=== PATIENT | female | born 1945 | race Caucasian/White ===

== ENCOUNTER 2024-11-17 11:51 | Observation (INO) ==
[2024-11-17 12:10] VITALS: BMI 42.0
[2024-11-17 14:37] LABS: MEAN PLATELET VOLUME 10.0 fL (7.4-11.0); RED CELL DISTRIBUTION WIDTH 14.3 % (11.6-16.5)
--- NOTE | 2024-11-17 14:45 | DR.SOBA ---
HPI Time Seen Time Seen by Provider: 11/17/24 13:56 Primary Care Physician Primary Care Physician: Nany Joseph NP HPI Comment HPI Comment: Dr. Carrington called regarding this patient earlier today stating that she had been diagnosed with pneumonia and was started on antibiotics but was seen in the office today and tested positive for COVID as well. Given patient was having some shortness of breath he would like to have her admitted after some workup. Complaints Chief Complaint:: Patient reports that she has shortness of breath, cough, and diarrhea. Self Treatment fo Chief Complaint: went to [facility] last sunday and was told that she has PNA and was given ABX. saw PCP today and tested positive for COVID and PCP wanted her to go to ER for further evaluation of Pneumonia. COVID-19 Coronavirus risk:travel/contact w/high risk person: No Has patient experienced Coronavirus symptoms: No Source History Provided: Patient Mode of Arrival Mode of Arrival: Ambulatory Timing Onset of Chief Complaint: 11/10/24 PMH PMH Past Medical History: Yes Past Medical History: Arthritis, Diabetes, Dyslipidemia, GERD, Hypertension and Renal Disease Past Medical History Comment: RLS Past Surgical History: Yes Surgical History: Cholecystectomy Past Surgical History Comment: parathyroid removed Family History History of Family Medical Conditions: Yes Family Medical History: Diabetes Mellitus, Cancer, [place], Coronary Artery Disease, Heart Failure and Hypertension Social History Type of Tobacco Use: None Alcohol Use: None Do you use any recreational Drugs:: No Lives With: Alone Lives Where: Home Travel Risk Coronavirus risk:travel/contact w/high risk person: No Has patient experienced Coronavirus symptoms: No Infectious screening Have you traveled outside the country in the last 6 months?: No Isolation: Standard ROS Review of Systems Constitutional: See HPI and Fever Eyes: No Symptoms Reported ENTM: No Symptoms Reported Respiratoy: See HPI, Non-Productive Cough and Short of Breath; negative Wheezing Cardiovascular: No Symptoms Reported; negative Chest Pain, Edema, Palpitations or Syncope Gastrointestinal/Abdominal: No Symptoms Reported Genitourinary: No Symptoms Reported Neurological: No Symptoms Reported Musculoskeletal: No Symptoms Reported Integumentary: No Symptoms Reported Hematologic/Lymphatic: No Symptoms Reported Endocrine: No Symptoms Reported Psychiatric: No Symptoms Reported All Other Systems: Reviewed and Negative PE Vital Signs Vitals: Vital Signs Temperature 99.2 F Pulse Rate 95 Respiratory Rate 24 Blood Pressure 109/61 O2 Sat by Pulse Oximetry 96 General Limitations: No Limitations General Appearance: Alert and In No Apparent Distress Head Head Exam: Normal Inspection Eyes Eye exam: Normal Appearance ENT ENT Exam: Normal Exam Neck Neck Exam: Normal Inspection Chest Chest Inspection: Normal Inspection Respiratory Respiratory Exam: Other (Slightly diminished bilaterally in the lower bases); negative Respiratory Distress Cardiovascular Cardiovascular Exam: Regular Rate and Normal Rhythm Abdominal Exam Abdominal Exam: Normal Inspection, Normal Bowel Sounds and Soft Extremities Extremities Exam: Normal Inspection Back Back Exam: Normal Inspection Neurologic Neurological Exam: Alert and Oriented X3 Psychiatric Psychiatric Exam: Normal Affect and Normal Mood Skin Skin Exam: Warm, Dry, Intact and Normal Color COURSE Treatment Treatment: Discussed results of workup with patient. Patient with pneumonia and tested positive for COVID at PCPs office today. Consultation Consultation Comments: Discussed case with Dr. Carrington, her PCP, and he is agreeable to admission. [facility] Labs Reviewed 11/17/24 14:09 11/17/24 14:09 Laboratory: WBC 10.6 X10^3/uL (3.6-10.0) H 11/17/24 14:09 RBC 4.99 X10^6/uL (3.5-5.4) 11/17/24 14:09 Hgb 13.3 g/dL (12.0-16.0) 11/17/24 14:09 Hct 41.2 % (36.0-47.0) 11/17/24 14:09 MCV 82.6 fL (80.0-100.0) 11/17/24 14:09 MCH 26.7 pg (27.0-34.0) L 11/17/24 14:09 MCHC 32.3 g/dL (33.0-35.0) L 11/17/24 14:09 RDW 14.3 % (11.6-16.5) 11/17/24 14:09 Plt Count 349 X10^3/uL (150.0-450.0) 11/17/24 14:09 MPV 10.0 fL (7.4-11.0) 11/17/24 14:09 Neut % (Auto) 80.5 % (42.0-75.0) H 11/17/24 14:09 Lymph % (Auto) 6.9 % (21.0-51.0) L 11/17/24 14:09 [place] % (Auto) 9.6 % (0.0-13.0) 11/17/24 14:09 Eos % (Auto) 0.2 % (0.9-2.9) L 11/17/24 14:09 Baso % (Auto) 2.8 % (0.2-1.0) H 11/17/24 14:09 Neut # (Auto) 8.5 x10^3/uL (2.2-4.8) H 11/17/24 14:09 Lymph # (Auto) 0.7 X10^3/uL (1.3-2.9) L 11/17/24 14:09 [place] # (Auto) 1.0 x10^3/uL (0.3-0.8) H 11/17/24 14:09 Eos # (Auto) 0.0 x10^3/uL (0.0-0.2) 11/17/24 14:09 Baso # (Auto) 0.3 X10^3/uL (0.0-0.1) H 11/17/24 14:09 Absolute Nucleated RBC 0.0 /100WBC 11/17/24 14:09 Sodium 140 mmol/L (136-145) 11/17/24 14:09 Corrected Sodium TNP 11/17/24 14:09 Potassium 3.6 mmol/L (3.5-5.1) 11/17/24 14:09 Chloride 103 mmol/L (98-107) 11/17/24 14:09 Carbon Dioxide 29.0 mmol/L (21-32) 11/17/24 14:09 BUN 20 mg/dL (7-18) H 11/17/24 14:09 Creatinine 1.35 mg/dL (0.55-1.02) H 11/17/24 14:09 Est GFR (MDRD) Af Amer 49 (>60) L 11/17/24 14:09 Est GFR (MDRD) Non-Af 40 (>60) L 11/17/24 14:09 Glucose 101 mg/dL (65-99) H 11/17/24 14:09 Lactic Acid 1.3 mmol/L (0.4-2.0) 11/17/24 14:09 Calcium 9.4 mg/dL (8.5-10.1) 11/17/24 14:09 Corrected Calcium 10.2 mg/dL (8.5-10.1) H 11/17/24 14:09 Magnesium 2.1 mg/dL (2.0-2.9) 11/17/24 14:09 Total Bilirubin 0.30 mg/dL (0.2-1.0) 11/17/24 14:09 AST 21 Units/L (15-37) 11/17/24 14:09 ALT 22 Units/L (12-78) 11/17/24 14:09 Alkaline Phosphatase 125 Units/L (46-116) H 11/17/24 14:09 Creatine Kinase 44 Units/L (26-192) 11/17/24 14:09 Troponin I High Sens 13.4 ng/L (4.0-60.0) 11/17/24 14:09 B-Natriuretic Peptide 353 pg/mL (0-79) H 11/17/24 14:09 Total Protein 8.6 g/dL (6.4-8.2) H 11/17/24 14:09 Albumin 3.0 g/dL (3.4-5.0) L 11/17/24 14:09 Globulin 5.6 g/dL (2.5-4.5) H 11/17/24 14:09 Albumin/Globulin Ratio 0.5 Ratio (1.1-2.1) L 11/17/24 14:09 Opioid Opioid Risk Tool Age (David box if 16-45): No History of Preadolescent Sexual Abuse: No Total: 0 Total Score Risk Category: Low Risk Copyright: Arnoldo CASTELLANOS predicting aberrant behaviors Discharge Plan Diagnosis Discharge Problem: Pneumonia, COVID, Hypoxia Discharge Plan Patient Disposition: 09 ADMITTED INPATIENT Condition: Stable Prescriptions: No Action atorvastatin 10 mg tablet 10 mg PO QDAY tramadol 50 mg tablet 50 mg PO TID PRN levothyroxine 25 mcg tablet 25 mcg PO QDAY citalopram 20 mg tablet 20 mg PO QDAY amlodipine 10 mg tablet 10 mg PO QDAY gabapentin 300 mg capsule PO omeprazole 20 mg capsule,delayed release(DR/EC) 20 mg PO QDAY montelukast 10 mg tablet 10 mg PO QDAY furosemide 20 mg tablet 20 mg PO QDAY amoxicillin-pot clavulanate 875-125 mg tablet 1 tab PO BID memantine 10 mg tablet 10 mg PO QDAY Health Concerns: Post Hospitalization: new medications and changes needed to prevent readmission or further decline. Pt educated and given instructions on all concerns. Plan of Treatment: Continue with present treatment and follow up plan. Pt is to keep follow up appointment as instructed and take medications as ordered. Orders to Discharge Patient Discharge Orders: Transfer (Routine); Ordered 11/17/24 Ordered By: Robin Shah Follow ups/Referrals Follow ups/Referrals: NANY JOSEPH [Primary Care Provider, Unknown] - 3 days Instructions Stand Alone Forms: Find Help Web Site, Post Hospital Follow Up Care Print Language: GREEK
--- NOTE | 2024-11-17 14:48 | EKG ---
Test Reason : sob Blood Pressure : */* mmHG Vent. Rate : 110 BPM Atrial Rate : * BPM P-R Int : * ms QRS Dur : 98 ms QT Int : 290 ms P-R-T Axes : * 28 16 degrees QTc Int : 392 ms Atrial fibrillation with rapid ventricular response Incomplete right bundle branch block Cannot rule out Anterior infarct , age undetermined Abnormal ECG No previous ECGs available Confirmed by Jorge Ferrara MD ([id number]) on 11/18/2024 11:53:58 AM Referred By: Confirmed By: Jorge Ferrara MD
[2024-11-17 15:07] LABS: COR CA(FOR HYPOALB) 10.2 mg/dL (8.5-10.1); CREATININE 1.35 mg/dL (0.55-1.02); eGFR NON BLACK RACES 40 (>60)
--- NOTE | 2024-11-17 15:52 | CT ---
EXAMINATION: CTA, CHEST HISTORY: Patient reports that she has shortness of breath, cough, and diarrhea. pt states she is covid positive ; COMPARISON: None. TECHNIQUE: Contiguous axial CT images of the thorax following intravenous contrast. Images reviewed in the axial imaging plane with post processing thick slab MIP/3D volume images at a workstation.The above CT scan was done with automated exposure control and the mA and kV was adjusted to obtain quality images according to patient size. FINDINGS: The lungs are expanded. Mild bilateral pleural effusions in the dependent posterior pleural spaces. Patchy interstitial alveolar infiltrates posteroinferior lower lobes. 1.9 x 2.9 x 1.7 cm focal region of pulmonary consolidation in the right middle lobe. The central airways are patent. Mild cardiomegaly, coronary artery calcifications. Slight pericardial thickening/pleural fluid. Enlarged main pulmonary outflow trunk measuring 4 cm diameter consistent with pulmonary arterial hypertension. There is reflux of contrast into the IVC consistent with right-sided cardiac dysfunction. No evidence of thrombus within the pulmonary arteries. No evidence of thoracic aortic aneurysm or dissection. No mediastinal or hilar adenopathy. Spondylosis. IMPRESSION: Mild bilateral pleural effusions in the dependent posterior pleural spaces. Patchy interstitial alveolar infiltrates in both lower lobes. Focal region of pulmonary consolidation right middle lobe. Enlarged main pulmonary outflow trunk consistent with pulmonary arterial hypertension. Reflux of contrast into the IVC consistent with right-sided cardiac dysfunction. Mild cardiomegaly, coronary artery calcifications. THIS IS AN ELECTRONICALLY VERIFIED FINAL REPORT 11/17/2024 3:49 PM - Electronically signed by Brandi Jimenez MD
[2024-11-17] MEDS: LASIX IVP STA (17:28)
[2024-11-17] MEDS ORDERED: NORCO 5/325 MG TAB PO PRN (18:33)
[2024-11-17] MEDS ORDERED: ZOFRAN INJ 4 MG VIAL IVP PRN (18:33)
[2024-11-17] MEDS ORDERED: TYLENOL 325 MG TAB PO PRN (18:33)
[2024-11-17] MEDS ORDERED: MORPHINE SULFATE INJ 2 MG INJ IVP PRN (18:33)
[2024-11-17] MEDS ORDERED: ULTRAM PO PRN (18:33)
[2024-11-17] MEDS: K-DUR TAB 20 MEQ PO ONE (19:51)
[2024-11-17] MEDS: VIBRAMYCIN PO SCH (19:51)
[2024-11-17] MEDS ORDERED: ROBITUSSIN DM PO PRN (20:47)
[2024-11-17] MEDS: DUONEB 0.5 MG/3 MG (3 mL) NEB SCH (21:25)
[2024-11-17] MEDS: PULMICORT NEB TX 0.5 MG NEB SCH (21:25)
[2024-11-17] MEDS: TUSSIONEX PENNKINETIC SUSP PO PRN (21:43)
[2024-11-17] MEDS: NEURONTIN CAP 300 MG PO SCH (21:43)
[2024-11-18 05:39] LABS: MEAN PLATELET VOLUME 10.0 fL (7.4-11.0); RED CELL DISTRIBUTION WIDTH 14.5 % (11.6-16.5)
[2024-11-18] MEDS: SYNTHROID 25 mcg TAB PO SCH (05:51)
[2024-11-18 06:06] LABS: COR CA(FOR HYPOALB) 9.7 mg/dL (8.5-10.1); CREATININE 1.21 mg/dL (0.55-1.02); eGFR NON BLACK RACES 46 (>60)
[2024-11-18] MEDS: K-DUR TAB 20 MEQ PO ONE (07:29)
[2024-11-18] MEDS: CONSULT PHARMACY - POTASSIUM & MAGNESIUM XX SCH (07:29)
[2024-11-18] MEDS: OMNIPAQUE 350 mg/mL 100 mL BTL 100 ML ONE (07:29)
[2024-11-18] MEDS: PULMICORT NEB TX 0.5 MG NEB ONE (07:30)
[2024-11-18] MEDS: DUONEB 0.5 MG/3 MG (3 mL) NEB ONE (07:30)
[2024-11-18] MEDS ORDERED: CONSULT PHARMACY - POTASSIUM & MAGNESIUM XX SCH (08:00)
--- NOTE | 2024-11-18 08:42 | DR.H&P ---
H&P History & Physical for Day of: H&P Date: 11/18/24 Chief Complaint Chief Complaint: dyspnea History of Present Illness History of Present Illness: Patient admitted to [facility] 11/11- for chest pain. She did undergo a stress test that was benign. During their workup, found right lower lobe pneumonia. She was sent home on Augmentin and follow-up with PCP. They did not do flu or COVID testing. She went to her PCP for hospital follow-up still feeling rough. COVID testing was positive. Pulse and respiratory rate were elevated. She was sent to our facility for ER evaluation and admission. In the ER, CT of the chest showed pulmonary hypertension with reflux from the right atrium into the IVC. Did show the right lower lobe pneumonia along with bilateral pleural effusions. Does have multiple areas of patchy infiltrate. She did meet sepsis criteria but did not require supplemental O2 and her lactic was normal. Serum creatinine was improved compared [facility] and further improved this morning. Patient reports that she went straight to sleep when she got up to the floor. She has slept all night. She has had productive cough throughout the night and feels like the breathing is a little better. Still feels extremely fatigued and weak overall. PMH: HTN, morbid obesity, HLD, CKD 4, prediabetes (last A1c 5.8% in July 2024). PSH: Bilateral TKA. Social: No tobacco, alcohol, or illicit drug use. Works as a realtor. ROS: 12 point ROS significant for productive cough, fatigue, weakness, malaise, fever, chills, sore throat. No nausea, vomiting, diarrhea, abdominal pain, leg swelling, claudication, palpitations, hemoptysis, or vision changes specifically. ROS otherwise negative. PE: Obese, elderly female in no acute distress. She is able to sit up without assistance. She is coughing with talking and deep breathing. Head NCAT, EOMI, hearing intact conversation, neck FAROM. Heart regular rate and rhythm with no murmur. Lungs diminished at bilateral bases with crackles and space of the right lower lobe. Fair air movement throughout with coarse breath sounds otherwise. Belly is soft, protuberant, and nontender with bowel sounds present. Able to move all 4 extremities well and able to ambulate to the bathroom without assistance. Mood and affect are appropriate and she is alert and oriented x 4. No edema of her extremities with 2+ cap refill and 2+ pulses throughout. Past Medical History Past Medical History: Arthritis, Diabetes, Dyslipidemia, GERD, Hypertension and Renal Disease Past Surgical History Surgical History: Joint Replacement and Ortho Surgery Family History Family Medical History: Diabetes Mellitus, Cancer, [place], Coronary Artery Disease, Heart Failure and Hypertension Social History Does patient currently use any type of tobacco product: No Type of Tobacco Use: None Does any household member use tobacco: No Alcohol Use: Rarely Drug Use: None Medications Home Medications: Home Medications Medication Instructions Recorded Confirmed Type amlodipine 10 mg tablet 10 mg PO QDAY 11/17/2411/17 History amoxicillin 875 mg-potassium 1 tab PO BID 11/17/24 History clavulanate 125 mg tablet atorvastatin 10 mg tablet 10 mg PO QDAY 11/17/2411/17 History citalopram 20 mg tablet 20 mg PO QDAY 11/17/2411/17 History furosemide 20 mg tablet 20 mg PO QDAY 11/17/2411/17 History gabapentin 300 mg capsule PO 11/17/24 History levothyroxine 25 mcg tablet 25 mcg PO QDAY 11/17/24 History memantine 10 mg tablet 10 mg PO QDAY 11/17/2411/17 History montelukast 10 mg tablet 10 mg PO QDAY 11/17/2411/17 History omeprazole 20 mg capsule,delayed 20 mg PO QDAY 5 11/17/24 History release tramadol 50 mg tablet 50 mg PO TID PRN 11/17/24 History Allergies Allergies Allergy/AdvReac Type Severity Reaction Status Date / Time No Known Drug Allergies Allergy Unknown Verified 11/17/24 12:10 Labs 11/18/24 04:12 11/18/24 04:12 Labs: Laboratory WBC 8.4 X10^3/uL (3.6-10.0) 11/18/24 04:12 RBC 4.73 X10^6/uL (3.5-5.4) 11/18/24 04:12 Hgb 12.5 g/dL (12.0-16.0) 11/18/24 04:12 Hct 39.0 % (36.0-47.0) 11/18/24 04:12 MCV 82.4 fL (80.0-100.0) 11/18/24 04:12 MCH 26.4 pg (27.0-34.0) L 11/18/24 04:12 MCHC 32.1 g/dL (33.0-35.0) L 11/18/24 04:12 RDW 14.5 % (11.6-16.5) 11/18/24 04:12 Plt Count 293 X10^3/uL (150.0-450.0) 11/18/24 04:12 MPV 10.0 fL (7.4-11.0) 11/18/24 04:12 Neut % (Auto) 66.1 % (42.0-75.0) 11/18/24 04:12 Lymph % (Auto) 16.3 % (21.0-51.0) L 11/18/24 04:12 [place] % (Auto) 15.1 % (0.0-13.0) H 11/18/24 04:12 Eos % (Auto) 0.8 % (0.9-2.9) L 11/18/24 04:12 Baso % (Auto) 1.7 % (0.2-1.0) H 11/18/24 04:12 Neut # (Auto) 5.5 x10^3/uL (2.2-4.8) H 11/18/24 04:12 Lymph # (Auto) 1.4 X10^3/uL (1.3-2.9) 11/18/24 04:12 [place] # (Auto) 1.3 x10^3/uL (0.3-0.8) H 11/18/24 04:12 Eos # (Auto) 0.1 x10^3/uL (0.0-0.2) 11/18/24 04:12 Baso # (Auto) 0.1 X10^3/uL (0.0-0.1) 11/18/24 04:12 Absolute Nucleated RBC 0.8 /100WBC 11/18/24 04:12 Sodium 142 mmol/L (136-145) 11/18/24 04:12 Corrected Sodium TNP 11/18/24 04:12 Potassium 3.2 mmol/L (3.5-5.1) L 11/18/24 04:12 Chloride 105 mmol/L (98-107) 11/18/24 04:12 Carbon Dioxide 25.9 mmol/L (21-32) 11/18/24 04:12 BUN 18 mg/dL (7-18) 11/18/24 04:12 Creatinine 1.21 mg/dL (0.55-1.02) H 11/18/24 04:12 Est GFR (MDRD) Af Amer 55 (>60) L 11/18/24 04:12 Est GFR (MDRD) Non-Af 46 (>60) L 11/18/24 04:12 Glucose 92 mg/dL (65-99) 11/18/24 04:12 Lactic Acid 1.3 mmol/L (0.4-2.0) 11/17/24 14:09 Calcium 8.5 mg/dL (8.5-10.1) 11/18/24 04:12 Corrected Calcium 9.7 mg/dL (8.5-10.1) 11/18/24 04:12 Magnesium 2.1 mg/dL (2.0-2.9) 11/17/24 14:09 Total Bilirubin 0.30 mg/dL (0.2-1.0) 11/18/24 04:12 AST 20 Units/L (15-37) 11/18/24 04:12 ALT 20 Units/L (12-78) 11/18/24 04:12 Alkaline Phosphatase 103 Units/L (46-116) 11/18/24 04:12 Creatine Kinase 44 Units/L (26-192) 11/17/24 14:09 Troponin I High Sens 13.4 ng/L (4.0-60.0) 11/17/24 14:09 B-Natriuretic Peptide 353 pg/mL (0-79) H 11/17/24 14:09 Total Protein 7.3 g/dL (6.4-8.2) 11/18/24 04:12 Albumin 2.5 g/dL (3.4-5.0) L 11/18/24 04:12 Globulin 4.8 g/dL (2.5-4.5) H 11/18/24 04:12 Albumin/Globulin Ratio 0.5 Ratio (1.1-2.1) L 11/18/24 04:12 SARS-CoV-2 (PCR) Positive (NEGATIVE) A 11/17/24 19:46 Influenza Type A (PCR) Negative (NEGATIVE) 11/17/24 19:46 Influenza Type B (PCR) Negative (NEGATIVE) 11/17/24 19:46 RSV (PCR) Negative (NEGATIVE) 11/17/24 19:46 Physical Exam Vital Signs: Vital Signs Temperature 97.8 F Temperature 97.7 F Pulse Rate [Brachial] 91 Pulse Rate [Brachial] 101 Respiratory Rate 16 Respiratory Rate 22 Blood Pressure [Right Arm] 117/58 Blood Pressure [Right Arm] 128/59 O2 Sat by Pulse Oximetry 95 O2 Sat by Pulse Oximetry 93 Assessment/Plan (1) Right lower lobe pneumonia: Qualifiers: Pneumonia type: due to unspecified organism Qualified Code(s): J18.9 - Pneumonia, unspecified organism Narrative Support Text: 05/04 COVID19. DuoNebs, O2 supplementation, doxycycline, steroids, incentive spirometry, out of bed as tolerated. Likely home in the next 24-48 hours. Status: Acute (2) COVID: Status: Acute (3) Bilateral pleural effusion: Narrative Support Text: Lasix IV. Hold Lasix p.o. Likely secondary to pneumonia and COVID-19. Status: Acute (4) Pulmonary hypertension: Narrative Support Text: Consider starting Jardiance at discharge. Treating the pneumonia and COVID-19 along with diuresis for the pleural effusions. Monitor closely. Will need outpatient echo. Status: Acute (5) Acute right-sided heart failure: Narrative Support Text: See above. Status: Acute (6) Hypoxia: Narrative Support Text: See above. Status: Acute (7) Prediabetes: Narrative Support Text: Consider starting Jardiance due to the prediabetes along with new right heart strain/CHF. Will need to have an outpatient echo for follow-up. NST at [facility] last week was benign with a EF of 71%. Status: Chronic (8) Essential (primary) hypertension: Narrative Support Text: Continue home meds. Watch amlodipine closely. Status: Chronic (9) Mixed hyperlipidemia: Narrative Support Text: Continue statin Status: Chronic (10) Morbid obesity: Narrative Support Text: Validus-IVC diet. Consider GLP-1 given coronary calcifications and prediabetes. Status: Chronic
[2024-11-18] MEDS: K-DUR TAB 20 MEQ PO SCH (08:47)
[2024-11-18] MEDS: MAG-OX TAB PO SCH (08:47)
[2024-11-18] MEDS: NORVASC TAB 10 MG PO SCH (08:48)
[2024-11-18] MEDS: SINGULAIR TAB 10 MG PO SCH (08:48)
[2024-11-18] MEDS: LIPITOR TAB 10 MG PO SCH (08:48)
[2024-11-18] MEDS: CELEXA PO SCH (08:48)
[2024-11-18] MEDS: NAMENDA TAB 10 MG PO SCH (08:48)
[2024-11-18] MEDS: LASIX IVP SCH (08:49)
[2024-11-18] MEDS: DECADRON INJ IVP SCH (08:57)
[2024-11-18] MEDS ORDERED: PHARMACY CONSULT XX SCH (09:00)
[2024-11-18] MEDS ORDERED: LASIX PO SCH (09:00)
[2024-11-18] MEDS: MUCINEX EXPECTORANT PO SCH (09:20)
[2024-11-18] MEDS: LOVENOX INJ 40 MG SYR SC SCH (12:27)
[2024-11-18] MEDS: PEPCID TAB 20 MG PO PRN (17:13)
--- NOTE | 2024-11-18 18:14 | EKG ---
Test Reason : tachycardia Blood Pressure : */* mmHG Vent. Rate : 106 BPM Atrial Rate : * BPM P-R Int : * ms QRS Dur : 88 ms QT Int : 312 ms P-R-T Axes : * -6 50 degrees QTc Int : 414 ms Atrial fibrillation with rapid ventricular response Nonspecific ST and T wave abnormality Abnormal ECG When compared with ECG of 17-NOV-2024 14:46, No significant change was found Confirmed by Jorge Ferrara MD ([id number]) on 11/19/2024 6:39:40 AM Referred By: Confirmed By: Jorge Ferrara MD
[2024-11-18] MEDS: ELIQUIS PO SCH (19:06)
[2024-11-18] MEDS: CARDIZEM TAB 30 MG PLAIN PO SCH (21:09)
[2024-11-18] MEDS: AMBIEN PO PRN (21:09)
[2024-11-19 05:36] LABS: MEAN PLATELET VOLUME 10.1 fL (7.4-11.0); RED CELL DISTRIBUTION WIDTH 14.4 % (11.6-16.5)
[2024-11-19 06:03] LABS: COR CA(FOR HYPOALB) 9.9 mg/dL (8.5-10.1); COR NA(FOR HYPERGLY) 142.0 mmol/L (136-145); CREATININE 1.36 mg/dL (0.55-1.02); eGFR NON BLACK RACES 40.0 (>60)
[2024-11-19] MEDS: LOPRESSOR TAB 25 MG PO SCH (13:02)
--- NOTE | 2024-11-19 13:31 | DR.CONSULT ---
CONSULT Consultation for Day of: Date: 11/19/24 Chief Complaint Chief Complaint: afib Allergies Allergies Allergy/AdvReac Type Severity Reaction Status Date / Time No Known Drug Allergies Allergy Unknown Verified 11/17/24 12:10 History of Present Illness History of Present Illness: 79 yo female- asked to see for afib- last week 11/11 admitted for cp- mi ruled out- ekg: normal sinus/normal- stress nuc: no ischemia EF 71%.dxed with PNA- readmitted here for pna/covid- found to be in afib- started on doac /and cardizem( takes amlodipine chronic)= no heart issues in past- ? bord dm/no statin has htn- never smoked- ekg: afib- tele shows occ p wave so trying to convert Past Medical History Past Medical History: Arthritis, Diabetes, Dyslipidemia, GERD, Hypertension and Renal Disease Past Surgical History Surgical History: Joint Replacement and Ortho Surgery Family History Family Medical History: Diabetes Mellitus, Cancer, [place], Coronary Artery Disease, Heart Failure and Hypertension Social History Does patient currently use any type of tobacco product: No Type of Tobacco Use: None Does any household member use tobacco: No Alcohol Use: Rarely Drug Use: None Medications Home Medications: No Known Drug Allergies Allergy (Unknown, Verified 11/17/24 12:10) CONTINUE taking the following medications amlodipine 10 mg tablet 10 mg PO QDAY 11/17/24 [History] amoxicillin 875 mg-potassium clavulanate 125 mg tablet 1 tab PO BID 11/17/24 [History] atorvastatin 10 mg tablet 10 mg PO QDAY 11/17/24 [History] citalopram 20 mg tablet 20 mg PO QDAY 11/17/24 [History] furosemide 20 mg tablet 20 mg PO QDAY 11/17/24 [History] gabapentin 300 mg capsule 300 mg PO BID 11/17/24 [History] levothyroxine 25 mcg tablet 25 mcg PO QDAY 11/17/24 [History] memantine 10 mg tablet 10 mg PO QDAY 11/17/24 [History] montelukast 10 mg tablet 10 mg PO QDAY 11/17/24 [History] omeprazole 20 mg capsule,delayed release 20 mg PO QDAY 11/17/24 [History] tramadol 50 mg tablet 50 mg PO TID PRN 11/17/24 [History] Physical Exam Vital Signs: Vital Signs Temperature 97.9 F Temperature 98.1 F Pulse Rate 90 Pulse Rate 81 Pulse Rate 85 Respiratory Rate 26 Respiratory Rate 25 Blood Pressure 112/62 Blood Pressure 114/61 O2 Sat by Pulse Oximetry 95 O2 Sat by Pulse Oximetry 95 O2 Sat by Pulse Oximetry 98 alert ox3 nad clear irreg minimal edema labs: wbc 9k hct 37 cr 1.36 k 4.2 tsh 0.5 Plan (1) Right lower lobe pneumonia: Status: Acute Qualifiers: Pneumonia type: due to unspecified organism Qualified Code(s): J18.9 - Pneumonia, unspecified organism (2) COVID: Status: Acute (3) Bilateral pleural effusion: Status: Acute (4) Acute right-sided heart failure: Status: Acute (5) Hypoxia: Status: Acute (6) Prediabetes: Status: Chronic (7) Essential (primary) hypertension: Status: Chronic (8) Mixed hyperlipidemia: Status: Chronic (9) Atrial fibrillation: Status: Acute Plan: agree with doac- change ccb to bb- get echo- was in nsr last week- suspect she will revert back to sinus- she trying now
--- NOTE | 2024-11-19 16:08 | NOTE.SOAP ---
Soap Note Note for Day of Date of Exam: 11/19/24 Subjective Data Subjective Data: Patient went into atrial flutter with RVR last night. Diltiazem and Eliquis started. Cardiology consulted today and echo performed. Report still pending. She is having more of a productive cough. Dyspnea appears improved. Ambulating about room easier. Diltiazem was stopped and metoprolol started by cardiology. Blood pressure doing well. Labs improved other than creatinine. Lasix was switched to IV yesterday. Objective Data Objective Data: Elderly, obese female in no acute distress. space in right lower lobe with improved aeration overall. Heart regular rate and rhythm at this time. 2+ pulses throughout. No swelling of her extremities or face. Belly is soft and nontender with bowel sounds present. Assessment Assessment: 1. Atrial fibrillation with RVR, acute, resolved. Appreciate cardiology input. Echo report pending. Will need to discharge on Eliquis and metoprolol. 2. COVID19 with RLL PNA, acute. Continue current. Will plan on discharge home tomorrow. She is not needing any O2. 3. Idiopathic pulmonary hypertension with right heart strain, acute. Likely secondary to respiratory issues. Likely the source of her atrial fibrillation. Will need pulmonary rehab and outpatient cardiology follow-ups.
[2024-11-20 05:09] LABS: MEAN PLATELET VOLUME 10.4 fL (7.4-11.0); RED CELL DISTRIBUTION WIDTH 13.8 % (11.6-16.5)
[2024-11-20 05:29] VITALS: TEMP 97.6
[2024-11-20 05:48] LABS: COR CA(FOR HYPOALB) 10.0 mg/dL (8.5-10.1); COR NA(FOR HYPERGLY) 140.0 mmol/L (136-145); CREATININE 1.38 mg/dL (0.55-1.02); eGFR NON BLACK RACES 39.0 (>60)
[2024-11-20 07:39] VITALS: BP 138/82; RESP 30
[2024-11-20 08:40] VITALS: PULSE 116; O2SAT 94
[2024-11-20] MEDS: LOPRESSOR TAB 25 MG PO SCH (08:42)
[2024-11-20] MEDS: DECADRON TAB PO ONE (09:42)
[2024-11-20] MEDS: LASIX PO SCH (09:42)
[2024-11-20] MEDS ORDERED: DECADRON TAB PO SCH (10:00)
--- NOTE | 2024-11-20 17:20 | PCM.DCPLAN ---
DISCHARGE SUMMARY Admission Date Date of Admission: 11/17/24 Discharge Date Discharge Date: 11/20/24 Admission Diagnoses (1) Right lower lobe pneumonia: Status: Acute (2) COVID: Status: Acute (3) Bilateral pleural effusion: Status: Acute (4) Acute right-sided heart failure: Status: Acute (5) Hypoxia: Status: Acute (6) Prediabetes: Status: Chronic (7) Essential (primary) hypertension: Status: Chronic (8) Mixed hyperlipidemia: Status: Chronic (9) Atrial fibrillation: Status: Acute Discharge Medications Discharge Medications: Home Medication List amlodipine 10 mg tablet 10 mg PO QDAY 11/17/24 [History] amoxicillin 875 mg-potassium clavulanate 125 mg tablet 1 tab PO BID 11/17/24 [History] atorvastatin 10 mg tablet 10 mg PO QDAY 11/17/24 [History] citalopram 20 mg tablet 20 mg PO QDAY 11/17/24 [History] furosemide 20 mg tablet 20 mg PO QDAY 11/17/24 [History] gabapentin 300 mg capsule 300 mg PO BID 11/17/24 [History] levothyroxine 25 mcg tablet 25 mcg PO QDAY 11/17/24 [History] memantine 10 mg tablet 10 mg PO QDAY 11/17/24 [History] montelukast 10 mg tablet 10 mg PO QDAY 11/17/24 [History] omeprazole 20 mg capsule,delayed release 20 mg PO QDAY 11/17/24 [History] tramadol 50 mg tablet 50 mg PO TID PRN 11/17/24 [History] Prescriptions: Hospital Course Vital Signs: Vital Signs Temperature 97.6 F Temperature 98.0 F Pulse Rate 89 Pulse Rate 103 Respiratory Rate 22 Respiratory Rate 19 Blood Pressure 214/65 Blood Pressure 121/62 O2 Sat by Pulse Oximetry 96 O2 Sat by Pulse Oximetry 96 Latest Lab Results: Laboratory Last Values WBC 13.6 X10^3/uL (3.6-10.0) H 11/20/24 03:56 RBC 4.39 X10^6/uL (3.5-5.4) 11/20/24 03:56 Hgb 11.7 g/dL (12.0-16.0) L 11/20/24 03:56 Hct 36.1 % (36.0-47.0) 11/20/24 03:56 MCV 82.2 fL (80.0-100.0) 11/20/24 03:56 MCH 26.6 pg (27.0-34.0) L 11/20/24 03:56 MCHC 32.3 g/dL (33.0-35.0) L 11/20/24 03:56 RDW 13.8 % (11.6-16.5) 11/20/24 03:56 Plt Count 366 X10^3/uL (150.0-450.0) 11/20/24 03:56 MPV 10.4 fL (7.4-11.0) 11/20/24 03:56 Neut % (Auto) 84.7 % (42.0-75.0) H 11/20/24 03:56 Lymph % (Auto) 8.7 % (21.0-51.0) L 11/20/24 03:56 [place] % (Auto) 6.1 % (0.0-13.0) 11/20/24 03:56 Eos % (Auto) 0.0 % (0.9-2.9) L 11/20/24 03:56 Baso % (Auto) 0.5 % (0.2-1.0) 11/20/24 03:56 Neut # (Auto) 11.5 x10^3/uL (2.2-4.8) H 11/20/24 03:56 Lymph # (Auto) 1.2 X10^3/uL (1.3-2.9) L 11/20/24 03:56 [place] # (Auto) 0.8 x10^3/uL (0.3-0.8) 11/20/24 03:56 Eos # (Auto) 0.0 x10^3/uL (0.0-0.2) 11/20/24 03:56 Baso # (Auto) 0.1 X10^3/uL (0.0-0.1) 11/20/24 03:56 Absolute Nucleated RBC 0.1 /100WBC 11/20/24 03:56 Sodium 140 mmol/L (136-145) 11/20/24 03:56 Corrected Sodium 140 mmol/L (136-145) 11/20/24 03:56 Potassium 3.9 mmol/L (3.5-5.1) 11/20/24 03:56 Chloride 103 mmol/L (98-107) 11/20/24 03:56 Carbon Dioxide 27.3 mmol/L (21-32) 11/20/24 03:56 BUN 33 mg/dL (7-18) H 11/20/24 03:56 Creatinine 1.38 mg/dL (0.55-1.02) H 11/20/24 03:56 Est GFR (MDRD) Af Amer 48 (>60) L 11/20/24 03:56 Est GFR (MDRD) Non-Af 39 (>60) L 11/20/24 03:56 Glucose 115 mg/dL (65-99) H 11/20/24 03:56 Lactic Acid 1.3 mmol/L (0.4-2.0) 11/17/24 14:09 Calcium 9.0 mg/dL (8.5-10.1) 11/20/24 03:56 Corrected Calcium 10.0 mg/dL (8.5-10.1) 11/20/24 03:56 Magnesium 2.2 mg/dL (2.0-2.9) 11/19/24 04:08 Total Bilirubin 0.20 mg/dL (0.2-1.0) 11/20/24 03:56 AST 13 Units/L (15-37) L 11/20/24 03:56 ALT 20 Units/L (12-78) 11/20/24 03:56 Alkaline Phosphatase 102 Units/L (46-116) 11/20/24 03:56 Creatine Kinase 44 Units/L (26-192) 11/17/24 14:09 Troponin I High Sens 13.4 ng/L (4.0-60.0) 11/17/24 14:09 B-Natriuretic Peptide 353 pg/mL (0-79) H 11/17/24 14:09 Total Protein 7.3 g/dL (6.4-8.2) 11/20/24 03:56 Albumin 2.7 g/dL (3.4-5.0) L 11/20/24 03:56 Globulin 4.6 g/dL (2.5-4.5) H 11/20/24 03:56 Albumin/Globulin Ratio 0.6 Ratio (1.1-2.1) L 11/20/24 03:56 TSH 3rd Generation 0.529 uIU/mL (0.358-3.74) 11/19/24 10:11 SARS-CoV-2 (PCR) Positive (NEGATIVE) A 11/17/24 19:46 Influenza Type A (PCR) Negative (NEGATIVE) 11/17/24 19:46 Influenza Type B (PCR) Negative (NEGATIVE) 11/17/24 19:46 RSV (PCR) Negative (NEGATIVE) 11/17/24 19:46 Resp Viral Panel (PCR) See scanned report 11/17/24 17:19 Hospital Course: Patient sent from PCPs office to the ER where she was admitted due to worsening dyspnea and fatigue. Admitted the week prior due to pneumonia. COVID was positive in the PCPs office. ER workup before admission showed pulmonary hypertension, regurgitation into the IVC, mild hypoxia, and the right lower lobe pneumonia. After admission, she developed atrial flutter with RVR and into atrial fibrillation. Cardiology was consulted and performed an echo. She had an NST the week prior in the OSH. Cardiology recommended metoprolol and Eliquis. Her diltiazem was stopped and switched to metoprolol. She tolerated it well. Heart rate was much better controlled and she was asymptomatic. She will need outpatient cardiology follow-up. It was thought that the cardiac symptoms were secondary to the respiratory issues. She has been discharged on p.o. doxycycline and steroids for the COVID and pneumonia. She will need to follow-up with the PCP about respiratory status and cardiology about cardiac issues. Patient discharged in improved, stable condition with instructions to ambulate about the house and follow-up with PCP and cardiology.
== END 2024-11-20 11:30 | disposition home or self-care (01) ==
LOC: ER 11:51 → U 11:51 → ICU 17:36
PROVIDERS: ADMIT Family Medicine; ATTEND Family Medicine
DX: Z29.89 Encounter for other specified prophylactic measures; E66.01 Morbid (severe) obesity due to excess calories; N18.4 Chronic kidney disease, stage 4 (severe); R06.02 Shortness of breath; R94.31 Abnormal electrocardiogram [ECG] [EKG]; E87.6 Hypokalemia; I12.9 Hypertensive chronic kidney disease with stage 1 through stage 4 chronic kidney disease, or unspecified chronic kidney disease; Z68.41 Body mass index [BMI] 40.0-44.9, adult; E83.42 Hypomagnesemia; J12.82 Pneumonia due to coronavirus disease 2019; E78.2 Mixed hyperlipidemia; I50.811 Acute right heart failure; K21.9 Gastro-esophageal reflux disease without esophagitis; R00.0 Tachycardia, unspecified; U07.1 COVID-19; I27.20 Pulmonary hypertension, unspecified; G25.81 Restless legs syndrome; I48.91 Unspecified atrial fibrillation; J90 Pleural effusion, not elsewhere classified

== ENCOUNTER 2024-12-01 15:45 | Inpatient (IN) ==
--- NOTE | 2024-12-01 16:00 | EKG ---
Test Reason : shortness of breath Blood Pressure : */* mmHG Vent. Rate : 118 BPM Atrial Rate : * BPM P-R Int : * ms QRS Dur : 90 ms QT Int : 310 ms P-R-T Axes : * 8 171 degrees QTc Int : 434 ms Atrial fibrillation with rapid ventricular response Nonspecific ST and T wave abnormality Low voltage QRS Cannot rule out Anterior infarct , age undetermined Abnormal ECG When compared with ECG of 18-NOV-2024 18:12, Minimal criteria for Anterior infarct seen nov 24 but not nov 24 Confirmed by Jorge Ferrara MD ([id number]) on 12/01/2024 5:40:30 PM Referred By: Confirmed By: Jorge Ferrara MD
[2024-12-01 16:02] VITALS: BMI 42.0
[2024-12-01 16:51] LABS: INR 2.68 (0.8-1.3)
[2024-12-01 16:54] LABS: MEAN PLATELET VOLUME 10.8 fL (7.4-11.0); RED CELL DISTRIBUTION WIDTH 14.9 % (11.6-16.5)
[2024-12-01 17:01] LABS: COR CA(FOR HYPOALB) 9.8 mg/dL (8.5-10.1); COR NA(FOR HYPERGLY) 139.0 mmol/L (136-145); CREATININE 1.78 mg/dL (0.55-1.02); eGFR NON BLACK RACES 29.0 (>60)
--- NOTE | 2024-12-01 17:06 | RAD ---
EXAM: CHEST, 1 VIEW HISTORY: SOB; COMPARISON: No relevant prior studies were available for comparison at the time of interpretation. TECHNIQUE: CHEST, 1 VIEW FINDINGS: Chest: Lines and tubes: Cardiac leads overlie the chest. Mediastinum: Cardiomegaly. Pulmonary vessels: No pulmonary vascular congestion. Lung [place]: No suspicious airspace opacity. Pleura: There is blunting of the left costophrenic angle. No pneumothorax. Bones and soft tissues: No acute osseous or soft tissue abnormality. IMPRESSION: 1. Moderate left pleural effusion THIS IS AN ELECTRONICALLY VERIFIED FINAL REPORT 12/01/2024 5:03 PM - Electronically signed by Chito Pino MD
[2024-12-01 17:31] LABS: PLATELET MORPHOLOGY COMMENT NORMAL (NORMAL)
[2024-12-01] MEDS ORDERED: LASIX ONE (17:33)
[2024-12-01] MEDS: LASIX IVP ONE (17:36)
[2024-12-01] MEDS: LOPRESSOR INJ 5 MG AMP IVP ONE ×2 (17:59→18:05)
--- NOTE | 2024-12-01 18:00 | DR.SOBA ---
HPI Time Seen Time Seen by Provider: 12/01/24 17:09 Primary Care Physician Primary Care Physician: elissa cortes HPI Comment HPI Comment: According to pt she has been experiencing chest pressure for several days gradual in onset has slowly worsened with shortness of breath, worse with activity and sitting at rest .is getting worse Complaints Chief Complaint Doctors Comments: shortness of breath ,chest pressure Chief Complaint:: Patient states she was diagnosed with covid pnuemonia on 11/17/24 she was discharged on 11/20/24 ever since she has been sick she has been having a heaviness feeling in the middle of her chest that hasnt went away. Sunday she states she started back with sob at all times no matter what she doing but more with excertion. unsure of fever but has had a dry cough since as well. COVID-19 Coronavirus risk:travel/contact w/high risk person: No Has patient experienced Coronavirus symptoms: No Reviewed Nurses Notes Reviewed: Yes Source History Provided: Patient Mode of Arrival Mode of Arrival: Ambulatory Timing Onset of Chief Complaint: 11/17/24 Duration Duration: Days Context Onset:: At Rest and With Light Exertion History of:: COPD (recent covid pneumonia ) and CHF Currently on:: Neither Prehospital Care:: O2 Modifying Factors Worsens:: Exertion Improves:: Nothing Associated Signs and Symptoms Associated Signs and Symptoms: Chest Pain PMH PMH Past Medical History: Yes Past Medical History: Arthritis, Diabetes, Dyslipidemia, GERD, Hypertension and Renal Disease Past Medical History Comment: RLS, A-fib Past Surgical History: Yes Surgical History: Joint Replacement and Ortho Surgery Past Surgical History Comment: parathyroid removed Family History History of Family Medical Conditions: Yes Family Medical History: Diabetes Mellitus, Cancer, [place], Coronary Artery Disease, Heart Failure and Hypertension Social History Does patient currently use any type of tobacco product: No Have you used tobacco products in the last 12 months: No Type of Tobacco Use: None Does any household member use tobacco: No Alcohol Use: None Do you use any recreational Drugs:: No Lives With: Family Lives Where: Home Travel Risk Coronavirus risk:travel/contact w/high risk person: No Has patient experienced Coronavirus symptoms: No Infectious screening In the last 2 months have you had wt loss of >10#?: NO Have you had fever, night sweats or hemotysis?: No Have you traveled outside the country in the last 6 months?: No Isolation: Standard PE Vital Signs Vitals: Vital Signs Temperature 99.4 F Pulse Rate 103 Pulse Rate 105 Pulse Rate 103 Pulse Rate 116 Pulse Rate 116 Pulse Rate 105 Pulse Rate 105 Pulse Rate 116 Pulse Rate 120 Pulse Rate 113 Pulse Rate 111 Pulse Rate 116 Pulse Rate 105 Pulse Rate 112 Pulse Rate 98 Respiratory Rate 31 Respiratory Rate 32 Respiratory Rate 32 Respiratory Rate 33 Respiratory Rate 31 Respiratory Rate 31 Respiratory Rate 31 Respiratory Rate 34 Respiratory Rate 34 Respiratory Rate 35 Respiratory Rate 34 Respiratory Rate 34 Respiratory Rate 27 Blood Pressure 135/78 Blood Pressure 135/78 Blood Pressure 129/88 Blood Pressure 124/76 Blood Pressure 124/76 Blood Pressure 116/78 Blood Pressure 120/76 Blood Pressure 124/63 Blood Pressure 138/73 O2 Sat by Pulse Oximetry 96 O2 Sat by Pulse Oximetry 93 O2 Sat by Pulse Oximetry 95 O2 Sat by Pulse Oximetry 95 O2 Sat by Pulse Oximetry 95 O2 Sat by Pulse Oximetry 93 O2 Sat by Pulse Oximetry 93 O2 Sat by Pulse Oximetry 89 O2 Sat by Pulse Oximetry 94 O2 Sat by Pulse Oximetry 95 O2 Sat by Pulse Oximetry 94 O2 Sat by Pulse Oximetry 94 O2 Sat by Pulse Oximetry 92 O2 Sat by Pulse Oximetry 90 O2 Sat by Pulse Oximetry 91 General Limitations: No Limitations General Appearance: Alert and Anxious Head Head Exam: Normal Inspection, Atraumatic and Normocephalic Eyes Eye exam: Normal Appearance, PERRL and EOMI ENT ENT Exam: Mucous Membranes Moist Neck Neck Exam: Normal Inspection, Full ROM and Trachea Midline Chest Chest Inspection: Normal Inspection and Symmetric Chest Wall Rise Respiratory Respiratory Exam: Normal Lung Sounds Bilat Respiratory Exam: Bilateral: Decreased Breath Sounds and Bilateral: Dullness on Percussion Cardiovascular Cardiovascular Exam: Tachycardia, +S1, +S2 and Other (no pitting edema ) Abdominal Exam Abdominal Exam: Normal Inspection, Normal Bowel Sounds and Soft Neurologic Neurological Exam: Alert Skin Skin Exam: Normal Color MDM Additional Information Obtained Additional Information Obtained From: Old Records Differential Diagnosis Differential Diagnosis: CHF, Mycardial Infarction and Pneumonia Differential Diagnosis Comment:: afib with rapid rate ,CHF COURSE Treatment Treatment: LABS,CXR ,LASIX OXYGEN ,LOPRESSOR iv 5MG ROR Labs Reviewed Laboratory Results Reviewed?: Yes 12/01/24 16:12 12/01/24 16:12 Laboratory: WBC 25.0 X10^3/uL (3.6-10.0) H 12/01/24 16:12 RBC 4.62 X10^6/uL (3.5-5.4) 12/01/24 16:12 Hgb 11.9 g/dL (12.0-16.0) L 12/01/24 16:12 Hct 37.9 % (36.0-47.0) 12/01/24 16:12 MCV 82.0 fL (80.0-100.0) 12/01/24 16:12 MCH 25.8 pg (27.0-34.0) L 12/01/24 16:12 MCHC 31.5 g/dL (33.0-35.0) L 12/01/24 16:12 RDW 14.9 % (11.6-16.5) 12/01/24 16:12 Plt Count 497 X10^3/uL (150.0-450.0) H 12/01/24 16:12 Plt Count Comment Increased (ADEQUATE) A 12/01/24 16:12 MPV 10.8 fL (7.4-11.0) 12/01/24 16:12 Neut % (Auto) 89.7 % (42.0-75.0) H 12/01/24 16:12 Lymph % (Auto) 3.0 % (21.0-51.0) L 12/01/24 16:12 [place] % (Auto) 7.0 % (0.0-13.0) 12/01/24 16:12 Eos % (Auto) 0.0 % (0.9-2.9) L 12/01/24 16:12 Baso % (Auto) 0.3 % (0.2-1.0) 12/01/24 16:12 Neut # (Auto) 22.4 x10^3/uL (2.2-4.8) H 12/01/24 16:12 Lymph # (Auto) 0.8 X10^3/uL (1.3-2.9) L 12/01/24 16:12 [place] # (Auto) 1.8 x10^3/uL (0.3-0.8) H 12/01/24 16:12 Eos # (Auto) 0.0 x10^3/uL (0.0-0.2) 12/01/24 16:12 Baso # (Auto) 0.1 X10^3/uL (0.0-0.1) 12/01/24 16:12 Absolute Nucleated RBC 0.0 /100WBC 12/01/24 16:12 Total Counted 100 12/01/24 16:12 Neutrophils % (Manual) 88 % (39-76) H 12/01/24 16:12 Lymphocytes % (Manual) 2 % (13-43) L 12/01/24 16:12 Monocytes % (Manual) 10 % (4-9) H 12/01/24 16:12 Plt Morphology Comment Normal (NORMAL) 12/01/24 16:12 RBC Morphology Normal (NORMAL) 12/01/24 16:12 PT 28.7 SECONDS (11.8-14.3) 12/01/24 16:12 INR Target Range - 12/01/24 16:12 INR 2.68 (0.8-1.3) H 12/01/24 16:12 APTT 51.9 SECONDS (22.9-36.5) H 12/01/24 16:12 PTT Comment - 12/01/24 16:12 D-Dimer Cancelled 12/01/24 16:12 Sodium 137 mmol/L (136-145) 12/01/24 16:12 Corrected Sodium 139 mmol/L (136-145) 12/01/24 16:12 Potassium 4.5 mmol/L (3.5-5.1) 12/01/24 16:12 Chloride 101 mmol/L (98-107) 12/01/24 16:12 Carbon Dioxide 25.7 mmol/L (21-32) 12/01/24 16:12 BUN 31 mg/dL (7-18) H 12/01/24 16:12 Creatinine 1.78 mg/dL (0.55-1.02) H 12/01/24 16:12 Est GFR (MDRD) Af Amer 36 (>60) L 12/01/24 16:12 Est GFR (MDRD) Non-Af 29 (>60) L 12/01/24 16:12 Glucose 179 mg/dL (65-99) H 12/01/24 16:12 Lactic Acid 2.0 mmol/L (0.4-2.0) 12/01/24 17:15 Calcium 8.6 mg/dL (8.5-10.1) 12/01/24 16:12 Corrected Calcium 9.8 mg/dL (8.5-10.1) 12/01/24 16:12 Total Bilirubin 1.10 mg/dL (0.2-1.0) H 12/01/24 16:12 AST 55 Units/L (15-37) H 12/01/24 16:12 ALT 44 Units/L (12-78) 12/01/24 16:12 Alkaline Phosphatase 285 Units/L (46-116) H 12/01/24 16:12 Creatine Kinase 18 Units/L (26-192) L 12/01/24 16:12 Troponin I High Sens 8.3 ng/L (4.0-60.0) 12/01/24 18:19 B-Natriuretic Peptide 237 pg/mL (0-79) H 12/01/24 16:12 Total Protein 7.3 g/dL (6.4-8.2) 12/01/24 16:12 Albumin 2.5 g/dL (3.4-5.0) L 12/01/24 16:12 Globulin 4.8 g/dL (2.5-4.5) H 12/01/24 16:12 Albumin/Globulin Ratio 0.5 Ratio (1.1-2.1) L 12/01/24 16:12 Opioid Opioid Risk Tool Age (David box if 16-45): No History of Preadolescent Sexual Abuse: No Total: 0 Total Score Risk Category: Low Risk Copyright: Arnoldo CASTELLANOS predicting aberrant behaviors Discharge Plan Diagnosis Discharge Problem: Pleural effusion on left, CHF (congestive heart failure), Hypoxia, Leukocytosis Discharge Plan Patient Disposition: ADMITTED INPATIENT Condition: Stable Prescriptions: No Action atorvastatin 10 mg tablet 10 mg PO QDAY tramadol 50 mg tablet 50 mg PO TID PRN levothyroxine 25 mcg tablet 25 mcg PO QDAY citalopram 20 mg tablet 20 mg PO QDAY amlodipine 10 mg tablet 10 mg PO QDAY gabapentin 300 mg capsule 300 mg PO BID omeprazole 20 mg capsule,delayed release(DR/EC) 20 mg PO QDAY montelukast 10 mg tablet 10 mg PO QDAY furosemide 20 mg tablet 20 mg PO QDAY memantine 10 mg tablet 10 mg PO QDAY dexamethasone 4 mg tablet 4 mg PO QDAY Qty: 5 0RF metoprolol tartrate 25 mg Tablet 25 mg PO TID 30 Days Qty: 90 0RF Eliquis 5 mg Tablet 5 mg PO BID 30 Days Qty: 60 0RF Health Concerns: Post Hospitalization: new medications and changes needed to prevent readmission or further decline. Pt educated and given instructions on all concerns. Plan of Treatment: Continue with present treatment and follow up plan. Pt is to keep follow up appointment as instructed and take medications as ordered. Follow ups/Referrals Follow ups/Referrals: NFD,None [Primary Care Provider] - 3 days Instructions Stand Alone Forms: Find Help Web Site, Post Hospital Follow Up Care Print Language: SPANISH
[2024-12-01] MEDS ORDERED: LOPRESSOR INJ 5 MG AMP IVP PRN (20:01)
[2024-12-01] MEDS: LOPRESSOR TAB 50 MG PO SCH (20:22)
[2024-12-01] MEDS: LASIX IVP SCH (20:22)
[2024-12-01] MEDS: ELIQUIS PO SCH (20:23)
[2024-12-01] MEDS: XOPENEX 1.25 MG/3 ML NEBULE NEB SCH (21:30)
[2024-12-01] MEDS: VALIUM INJ IVP PRN (22:19)
[2024-12-02 05:27] LABS: MEAN PLATELET VOLUME 10.2 fL (7.4-11.0); RED CELL DISTRIBUTION WIDTH 14.7 % (11.6-16.5)
[2024-12-02 05:37] LABS: COR CA(FOR HYPOALB) 9.9 mg/dL (8.5-10.1); CREATININE 1.67 mg/dL (0.55-1.02); eGFR NON BLACK RACES 32 (>60)
[2024-12-02 05:38] LABS: PLATELET MORPHOLOGY COMMENT NORMAL (NORMAL)
[2024-12-02] MEDS ORDERED: CONSULT PHARMACY - POTASSIUM & MAGNESIUM XX SCH (06:00)
--- NOTE | 2024-12-02 07:32 | CT ---
EXAMINATION: CTA, CHEST HISTORY: Pleural effusion, tachypnea, tachycardia; . COMPARISON: CT angio chest 11/17/2024 TECHNIQUE: Routine axial imaging of the chest was performed. CT angiography of the pulmonary arteries was performed with maximum intensity projection images and volume rendered images on a workstation.. The above CT scan was done with automated exposure control and the mA and kV was adjusted to obtain quality images according to patient size. FINDINGS: Lungs: Respiratory motion. Atelectasis in the right middle lobe lingula and both lower lobes. No acute infiltrates, suspicious pulmonary nodules or ground-glass opacities noted. Central Airways: No obstructing endobronchial lesions Pleura: Moderate bilateral pleural effusions with atelectasis. No pneumothorax. Thoracic Aorta: Ectasia. Atherosclerotic calcification. No dissection. Main Pulmonary Trunk: Enlarged main pulmonary artery measuring 3.4 cm suggesting pulmonary arterial hypertension. No CT angiography evidence for acute pulmonary embolus. Evaluation limited by respiratory motion. Lymph Nodes: No pathologic lymphadenopathy Heart/Pericardium: Cardiomegaly. Moderate pericardial effusion measuring 1.66 cm in greatest dimension. Multi-vessel coronary artery calcification Liver: No acute findings. GB/Biliary: Cholecystectomy. No dilated duct Spleen: Normal size and density Pancreas: No acute findings as visualized Adrenal Glands: No mass Kidneys no hydronephrosis. Abdominal Aorta: Tapers normally Retroperitoneum: No pathologically enlarged lymph nodes Bowel/Peritoneal Cavity: No acute findings as visualized Osseous Structures: Degenerative changes in the thoracolumbar spine. No acute findings or bony lesions. Other: None IMPRESSION: Moderate bilateral effusions with atelectasis in the right middle lobe lingula and both lower lobes. No CT angiography evidence for acute pulmonary embolus or aortic dissection. Pulmonary arterial hypertension Moderate pericardial effusion. Consider echocardiogram The above CT scan was done with automated exposure control and the mA and kV was adjusted to obtain quality images according to patient size THIS IS AN ELECTRONICALLY VERIFIED FINAL REPORT 12/02/2024 7:28 AM - Electronically signed by Gigi Martinez MD
[2024-12-02 07:36] LABS: INR 2.53 (0.8-1.3)
[2024-12-02] MEDS: K-DUR TAB 20 MEQ PO SCH (08:14)
[2024-12-02] MEDS: MAG-OX TAB PO SCH (08:15)
[2024-12-02] MEDS: NORVASC TAB 10 MG PO SCH (08:15)
[2024-12-02] MEDS: SYNTHROID 25 mcg TAB PO SCH (08:15)
[2024-12-02] MEDS: LIPITOR TAB 10 MG PO SCH (08:15)
[2024-12-02] MEDS: OMNIPAQUE 350 mg/mL 100 mL BTL 100 ML ONE (08:24)
[2024-12-02] MEDS: PULMICORT NEB TX 0.5 MG NEB SCH (09:11)
--- NOTE | 2024-12-02 09:11 | DR.CONSULT ---
CONSULT Consultation for Day of: Date: 12/02/24 Chief Complaint Chief Complaint: sob Allergies Allergies Allergy/AdvReac Type Severity Reaction Status Date / Time No Known Drug Allergies Allergy Unknown Verified 12/01/24 15:51 History of Present Illness History of Present Illness: admitted few weeks ago for pna/covid- found to be in afib- started on doac/bb with thought of cardioversion in future once resp status better and if she remained in afib- presents back with worsening sob- did ok at home for 10 days- CTA: b pleural effusions- worse than few weeks ago- mod pericardial effusion- worse othan few weeks ago- echo : pericardial effusion went from 1.2 cm to 1.9 cm just like cta- hr better aftre iv BB- still on doac Past Medical History Past Medical History: Arthritis, Diabetes, Dyslipidemia, GERD, Hypertension and Renal Disease Past Surgical History Surgical History: Joint Replacement and Ortho Surgery Family History Family Medical History: Diabetes Mellitus, Cancer, [place], Coronary Artery Disease, Heart Failure and Hypertension Social History Does patient currently use any type of tobacco product: No Have you used tobacco products in the last 12 months: No Type of Tobacco Use: None Does any household member use tobacco: No Alcohol Use: Rarely Drug Use: None Medications Home Medications: No Known Drug Allergies Allergy (Unknown, Verified 12/01/24 15:51) Physical Exam Vital Signs: Vital Signs Temperature 97.3 F Temperature 98.1 F Pulse Rate [Left] 87 Pulse Rate [Left] 87 Pulse Rate 75 Respiratory Rate 22 Respiratory Rate 20 Blood Pressure [Right Arm] 130/75 Blood Pressure [Right Arm] 116/62 O2 Sat by Pulse Oximetry 94 O2 Sat by Pulse Oximetry 95 O2 Sat by Pulse Oximetry 95 sob few crackles/decreased bs bases- irreg irreg 2 plus edema- hard to see neck veins labs: wbc 22k d dimer 5.5 but cta: no PE, cr 1.67 bnp 237 trop x 2 negative ekg: rafib CTA: no PE, worsening B effusions, B atelectasis/ mod pericardial effusion Plan (1) Pleural effusion on left: Status: Acute (2) Morbid obesity: Status: Chronic (3) Essential (primary) hypertension: Status: Chronic (4) Mixed hyperlipidemia: Status: Chronic (5) Atrial fibrillation with rapid ventricular response: Status: Acute Plan: get rsep status better with lasix/resp treatment- add amiodorone load- cont bb/doca- SHEBA/CV in few days when resp status improved. (6) CHF (congestive heart failure): Status: Acute
--- NOTE | 2024-12-02 09:15 | DR.H&P ---
H&P History & Physical for Day of: H&P Date: 12/02/24 Chief Complaint Chief Complaint: chest tightness History of Present Illness History of Present Illness: Patient recently admitted here with COVID-19 pneumonia and went into atrial fibrillation with RVR. Started on metoprolol and Eliquis. She has been compliant with those medications since discharge. PCP has referred her to an outpatient neon electrician. Was feeling better each day until 3 days ago. On Sunday, started to feel more short of breath and weak. Eventually progressed to worsening chest tightness and inability to sleep. Presented to the ER yesterday. Chest x-ray now concerning for bilateral pleural effusions. GFR was down to 29 so no CTA was obtained. D-dimer was ordered overnight and elevated. CT this morning is showing increased pericardial effusions with bilateral pleural effusions. No masses, infiltrates, or clots. Still showing pulmonary hypertension as well. Cardiology was consulted and advised that he recommended a SHEBA after addition of amiodarone and improvement in her respiratory workload. PMH: HTN, morbid obesity, HLD, CKD 4, prediabetes, atrial fibrillation. PSH: Bilateral TKA. Social: No tobacco, alcohol, or illicit drug use. Works as a realtor. ROS: 12 point ROS significant for productive cough, fatigue, weakness, malaise, fever, chills, sore throat. No nausea, vomiting, diarrhea, abdominal pain, leg swelling, claudication, palpitations, hemoptysis, or vision changes specifically. ROS otherwise negative. PE: Obese, elderly female in no acute distress. She is able to sit up without assistance. Head NCAT, EOMI, hearing intact conversation. Heart irregularly, irregular. Lungs diminished throughout. No wheezing or rhonchi. Rales at bases. Belly is soft, protuberant, and nontender with bowel sounds present. Able to move all 4 extremities well and able to ambulate to the bathroom without assistance. Mood and affect are appropriate. She is alert and oriented x 4. Past Medical History Past Medical History: Arthritis, Diabetes, Dyslipidemia, GERD, Hypertension and Renal Disease Past Surgical History Surgical History: Joint Replacement and Ortho Surgery Family History Family Medical History: Diabetes Mellitus, Cancer, [place], Coronary Artery Disease, Heart Failure and Hypertension Social History Does patient currently use any type of tobacco product: No Have you used tobacco products in the last 12 months: No Type of Tobacco Use: None Does any household member use tobacco: No Alcohol Use: Rarely Drug Use: None Medications Home Medications: Home Medications Medication Instructions Recorded Confirmed Type amlodipine 10 mg tablet 10 mg PO QDAY 11/17/2412/01 History atorvastatin 10 mg tablet 10 mg PO QDAY 11/17/2412/01 History citalopram 20 mg tablet 20 mg PO QDAY 11/17/2412/01 History furosemide 20 mg tablet 20 mg PO QDAY 11/17/2412/01 History gabapentin 300 mg capsule 300 mg PO BID 11/17/2412/01 History levothyroxine 25 mcg tablet 25 mcg PO QDAY 11/17/24 History memantine 10 mg tablet 10 mg PO QDAY 11/17/2412/01 History montelukast 10 mg tablet 10 mg PO QDAY 11/17/2412/01 History omeprazole 20 mg capsule,delayed 20 mg PO QDAY 5 12/01/24 History release tramadol 50 mg tablet 50 mg PO TID PRN 11/17/24 History Allergies Allergies Allergy/AdvReac Type Severity Reaction Status Date / Time No Known Drug Allergies Allergy Unknown Verified 12/01/24 15:51 Labs 12/02/24 05:10 12/02/24 05:10 Labs: Laboratory WBC 22.3 X10^3/uL (3.6-10.0) H 12/02/24 05:10 RBC 4.20 X10^6/uL (3.5-5.4) 12/02/24 05:10 Hgb 11.0 g/dL (12.0-16.0) L 12/02/24 05:10 Hct 34.1 % (36.0-47.0) L 12/02/24 05:10 MCV 81.2 fL (80.0-100.0) 12/02/24 05:10 MCH 26.2 pg (27.0-34.0) L 12/02/24 05:10 MCHC 32.3 g/dL (33.0-35.0) L 12/02/24 05:10 RDW 14.7 % (11.6-16.5) 12/02/24 05:10 Plt Count 393 X10^3/uL (150.0-450.0) 12/02/24 05:10 Plt Count Comment Adequate (ADEQUATE) 12/02/24 05:10 MPV 10.2 fL (7.4-11.0) 12/02/24 05:10 Neut % (Auto) 82.3 % (42.0-75.0) H 12/02/24 05:10 Lymph % (Auto) 7.2 % (21.0-51.0) L 12/02/24 05:10 [place] % (Auto) 10.4 % (0.0-13.0) 12/02/24 05:10 Eos % (Auto) 0.0 % (0.9-2.9) L 12/02/24 05:10 Baso % (Auto) 0.1 % (0.2-1.0) L 12/02/24 05:10 Neut # (Auto) 18.4 x10^3/uL (2.2-4.8) H 12/02/24 05:10 Lymph # (Auto) 1.6 X10^3/uL (1.3-2.9) 12/02/24 05:10 [place] # (Auto) 2.3 x10^3/uL (0.3-0.8) H 12/02/24 05:10 Eos # (Auto) 0.0 x10^3/uL (0.0-0.2) 12/02/24 05:10 Baso # (Auto) 0.0 X10^3/uL (0.0-0.1) 12/02/24 05:10 Absolute Nucleated RBC 0.1 /100WBC 12/02/24 05:10 Total Counted 100 12/02/24 05:10 Neutrophils % (Manual) 84 % (39-76) H 12/02/24 05:10 Lymphocytes % (Manual) 9 % (13-43) L 12/02/24 05:10 Monocytes % (Manual) 7 % (4-9) 12/02/24 05:10 Plt Morphology Comment Normal (NORMAL) 12/02/24 05:10 RBC Morphology Abnormal (NORMAL) A 12/02/24 05:10 Hypochromasia Slight A 12/02/24 05:10 PT 28.7 SECONDS (11.8-14.3) 12/01/24 16:12 INR Target Range - 12/01/24 16:12 INR 2.68 (0.8-1.3) H 12/01/24 16:12 APTT 51.9 SECONDS (22.9-36.5) H 12/01/24 16:12 PTT Comment - 12/01/24 16:12 D-Dimer 5.52 ug/ml (0.0-0.57) H 12/01/24 16:12 D-Dimer Cancelled 12/01/24 16:12 Sodium 141 mmol/L (136-145) 12/02/24 05:10 Corrected Sodium TNP 12/02/24 05:10 Potassium 3.6 mmol/L (3.5-5.1) 12/02/24 05:10 Chloride 103 mmol/L (98-107) 12/02/24 05:10 Carbon Dioxide 29.7 mmol/L (21-32) 12/02/24 05:10 BUN 31 mg/dL (7-18) H 12/02/24 05:10 Creatinine 1.67 mg/dL (0.55-1.02) H 12/02/24 05:10 Est GFR (MDRD) Af Amer 38 (>60) L 12/02/24 05:10 Est GFR (MDRD) Non-Af 32 (>60) L 12/02/24 05:10 Glucose 109 mg/dL (65-99) H 12/02/24 05:10 Lactic Acid 2.0 mmol/L (0.4-2.0) 12/01/24 17:15 Calcium 8.5 mg/dL (8.5-10.1) 12/02/24 05:10 Corrected Calcium 9.9 mg/dL (8.5-10.1) 12/02/24 05:10 Magnesium 1.7 mg/dL (2.0-2.9) L 12/02/24 05:10 Total Bilirubin 0.50 mg/dL (0.2-1.0) 12/02/24 05:10 AST 34 Units/L (15-37) 12/02/24 05:10 ALT 42 Units/L (12-78) 12/02/24 05:10 Alkaline Phosphatase 224 Units/L (46-116) H 12/02/24 05:10 Creatine Kinase 18 Units/L (26-192) L 12/01/24 16:12 Troponin I High Sens 8.3 ng/L (4.0-60.0) 12/01/24 18:19 B-Natriuretic Peptide 237 pg/mL (0-79) H 12/01/24 16:12 Total Protein 6.7 g/dL (6.4-8.2) 12/02/24 05:10 Albumin 2.2 g/dL (3.4-5.0) L 12/02/24 05:10 Globulin 4.5 g/dL (2.5-4.5) 12/02/24 05:10 Albumin/Globulin Ratio 0.5 Ratio (1.1-2.1) L 12/02/24 05:10 Physical Exam Vital Signs: Vital Signs Temperature 98.1 F Temperature 98.0 F Pulse Rate [Left] 87 Pulse Rate [Left] 98 Pulse Rate 75 Respiratory Rate 20 Respiratory Rate 20 Blood Pressure [Right Arm] 116/62 Blood Pressure [Right Arm] 118/74 O2 Sat by Pulse Oximetry 95 O2 Sat by Pulse Oximetry 95 O2 Sat by Pulse Oximetry 92 Assessment/Plan (1) Atrial fibrillation with rapid ventricular response: Narrative Support Text: Cardiology consulted, appreciate their recs. Will plan on SHEBA if we can get her breathing better. Continue nebs, O2 supplementation, and diuresis. Will hold off on steroids at this time as we think it is mostly fluid. Status: Acute (2) Pleural effusion on left: Narrative Support Text: Larger on the left than the right. Status: Acute (3) Pulmonary hypertension: Status: Acute (4) Morbid obesity: Status: Chronic (5) Essential (primary) hypertension: Narrative Support Text: Resume appropriate home meds. Status: Chronic (6) Mixed hyperlipidemia: Status: Chronic (7) Prediabetes: Status: Chronic
[2024-12-02] MEDS: CORDARONE TAB 200 MG PO SCH (11:04)
[2024-12-02] MEDS: TYLENOL 325 MG TAB PO PRN (21:45)
[2024-12-03] MEDS: MAG-OX TAB PO SCH (08:17)
[2024-12-03] MEDS: K-DUR TAB 20 MEQ PO SCH (08:18)
[2024-12-03] MEDS ORDERED: CARDIZEM INJ 125 MG VIAL 125 MG in NS 100 ML IV 100 ML IV PRN (08:46)
[2024-12-03 09:42] LABS: MEAN PLATELET VOLUME 9.7 fL (7.4-11.0); RED CELL DISTRIBUTION WIDTH 14.3 % (11.6-16.5)
[2024-12-03] MEDS: ZAROXOLYN PO SCH (09:52)
[2024-12-03] MEDS: LOPRESSOR TAB 25 MG PO ONE ×2 (09:52→12:48)
[2024-12-03 09:55] LABS: COR CA(FOR HYPOALB) 9.9 mg/dL (8.5-10.1); COR NA(FOR HYPERGLY) 144.0 mmol/L (136-145); CREATININE 1.3 mg/dL (0.55-1.02); eGFR NON BLACK RACES 42.0 (>60)
[2024-12-03 09:57] LABS: BLOOD/HEMOGLOBIN,URINE NEGATIVE (NEGATIVE); LEUKOCYTE ESTERASE ,URINE NEGATIVE (NEGATIVE); NITRITES,URINE NEGATIVE (NEGATIVE)
[2024-12-03 10:06] LABS: APPEARANCE,URINE CLEAR (CLEAR); SQUAMOUS EPITHELIAL CELL,UR RARE /HPF (NEGATIVE)
[2024-12-03 10:10] LABS: BAND NEUTROPHILS % 2 % (0-10); PLATELET MORPHOLOGY COMMENT NORMAL (NORMAL)
--- NOTE | 2024-12-03 11:20 | RAD ---
EXAM: CHEST, 1 VIEW HISTORY: LEFT PLEURAL EFFUSION, CHF; COMPARISON: 12/01/[address] dated 12/02/2024 TECHNIQUE: AP FINDINGS: Stable prominent cardiac silhouette, accentuated by AP technique. Layering pleural effusions and bibasilar atelectasis are similar to comparison. No visible pneumothorax. IMPRESSION: Stable layering pleural effusions and bibasilar atelectasis. THIS IS AN ELECTRONICALLY VERIFIED FINAL REPORT 12/03/2024 11:15 AM - Electronically signed by Spencer Lutz MD
--- NOTE | 2024-12-03 12:21 | NOTE.SOAP ---
Soap Note Note for Day of Date of Exam: 12/03/24 Subjective Data Subjective Data: No acute events overnight. Patient reports she feels like she is going to today. Vitals and labs overall improved. 1 blood culture growing gram-positive cocci. Objective Data Objective Data: Elderly, obese female in no acute distress. Does appear down. Heart rate is irregularly, regular. Was consistently in 130s during the exam. Lungs diminished at the bases but clear at the apices. Belly is soft, protuberant, and nondistended with bowel sounds present. Assessment Assessment: Afib w/ RVR Pleural effusions Pericardial effusion Acute hypoxemic respiratory failure Plan Plan: I suspect the blood culture is a contaminant but we will monitor. White count is downtrending. Will add on Zaroxolyn 5 mg today and tomorrow p.o. Will start her on a diltiazem drip if heart rate stays over 120 today. Will move her to the unit and place her on BiPAP to try to help with her work of breathing. Her numbers look better, but she just appears fatigued and frustrated. May be an element of medical depression related to her health over the last 2 weeks.
--- NOTE | 2024-12-03 12:31 | EKG ---
Test Reason : Chest pain Blood Pressure : */* mmHG Vent. Rate : 85 BPM Atrial Rate : 85 BPM P-R Int : 154 ms QRS Dur : 80 ms QT Int : 370 ms P-R-T Axes : 40 7 77 degrees QTc Int : 440 ms Normal sinus rhythm Low voltage QRS Cannot rule out Anterior infarct (cited on or before 01-DEC-2024) Abnormal ECG When compared with ECG of 01-DEC-2024 15:56, Sinus rhythm has replaced Atrial fibrillation Inverted T waves have replaced nonspecific T wave abnormality in Anterior leads Confirmed by Jorge Ferrara MD ([id number]) on 12/03/2024 12:32:38 PM Referred By: Confirmed By: Jorge Ferrara MD
--- NOTE | 2024-12-03 13:14 | NOTE.SOAP ---
Soap Note Note for Day of Date of Exam: 12/03/24 Subjective Data Subjective Data: moved to unit this am for worsening resp status/rafib- c/o r sided pleuritic/reproducible pain to touch Objective Data Objective Data: tele: NSR r sided chest hurts when I pushed on it labs: wbc 22.8- cr down to 1.3 cxr: layering effusions ekg: nsr ns st/t- was there when in afib too- slightly worse Assessment Assessment: pleural effusions/afib converted to nsr/pleuritic/reproducible cp to touch Plan Plan: cont amio load as well as bb/doac- cont diuresis- check trop x2 but giving ketorolac for pain-might have to get pleurocentesis to get breathing easier but on doac now- would have to hold for several days but made easier if remains in nSR
[2024-12-03] MEDS: LASIX IVP SCH (13:25)
[2024-12-03] MEDS: TORADOL 15 MG VIAL IVP PRN (13:26)
[2024-12-03] MEDS: LOPRESSOR TAB 50 MG PO SCH (20:05)
[2024-12-04 05:00] LABS: MEAN PLATELET VOLUME 10.1 fL (7.4-11.0); RED CELL DISTRIBUTION WIDTH 14.3 % (11.6-16.5)
[2024-12-04 05:14] LABS: COR CA(FOR HYPOALB) 9.6 mg/dL (8.5-10.1); CREATININE 1.44 mg/dL (0.55-1.02); eGFR NON BLACK RACES 38 (>60)
[2024-12-04] MEDS: CONSULT PHARMACY - POTASSIUM & MAGNESIUM XX SCH ×2 (06:55)
[2024-12-04] MEDS: LASIX IVP SCH (08:08)
[2024-12-04] MEDS: MAG-OX TAB PO SCH (08:08)
[2024-12-04] MEDS: REVATIO PO SCH (08:09)
[2024-12-04] MEDS: K-DUR TAB 20 MEQ PO SCH (08:09)
[2024-12-04] MEDS ORDERED: K-DUR TAB 20 MEQ PO SCH (09:00)
--- NOTE | 2024-12-04 09:27 | RAD ---
EXAMINATION: CHEST, 1 VIEW HISTORY: LEFT PLEURAL EFFUSION, CHF, LEUKOCYTOSIS; . COMPARISON STUDY: Chest x-ray 12/04/2023 TECHNIQUE: Single portable AP view of the chest FINDINGS: Hazy opacities mid and lower lung [place] bilaterally. Dense opacity obscures the left pulmonary base, hemidiaphragm. [id number] cardiac silhouette enlargement. Normal pulmonary vascular pattern. Bones are intact IMPRESSION: Bilateral pulmonary infiltrates. Cardiac silhouette enlargement. THIS IS AN ELECTRONICALLY VERIFIED FINAL REPORT 12/04/2024 9:23 AM - Electronically signed by Brandi Jimenez MD
[2024-12-04] MEDS: ALBUMIN HUMAN 25%- 100 ML 100 ML IV SCH (09:52)
--- NOTE | 2024-12-04 17:04 | NOTE.SOAP ---
Soap Note Note for Day of Date of Exam: 12/04/24 Subjective Data Subjective Data: Moved to ICU yesterday. Auto converted before BiPAP placed. Has felt much more comfortable on the BiPAP. Slept much better last night. Has remained in sinus rhythm. Was able to ambulate with assistance today. Able to sit with 2 L nasal cannula for approximately an hour. Mild anemia, stable labs. New hypokalemia. GFR slightly worse. White count downtrending. Patient does not feel like she is going to in the next 24 hours. Objective Data Objective Data: Elderly, obese female in no acute distress. Easily able to talk off the BiPAP. Rales at the bases but lungs clear otherwise. Heart RRR. Belly is soft and nontender with bowel sounds present. Mood and affect are much improved. Assessment Assessment: Afib w/ RVR Pleural effusions Pericardial effusion Acute hypoxemic respiratory failure PHTN Plan Plan: Repeat, focused echo with PA pressure of 31. Chest x-ray with continued bilateral effusions, left greater than right. Continue BiPAP for now. Consider sildenafil addition. Tentatively plan on discharging tomorrow on amiodarone twice daily with close cardiology follow-up. Will need to continue Eliquis. Continue diuresis.
[2024-12-05 04:47] LABS: MEAN PLATELET VOLUME 9.9 fL (7.4-11.0); RED CELL DISTRIBUTION WIDTH 14.7 % (11.6-16.5)
[2024-12-05 04:52] LABS: COR CA(FOR HYPOALB) 9.5 mg/dL (8.5-10.1); COR NA(FOR HYPERGLY) 142.0 mmol/L (136-145); CREATININE 1.45 mg/dL (0.55-1.02); eGFR NON BLACK RACES 37.0 (>60)
[2024-12-05] MEDS: CONSULT PHARMACY - POTASSIUM & MAGNESIUM XX SCH (06:45)
--- NOTE | 2024-12-05 07:33 | RAD ---
EXAM: CHEST, 1 VIEW HISTORY: [place] PULMONARY INFILTRATES; HTN, DM, RENAL DISEASE, GERD, RLS, AFIB SX: ORTHO, PARATHYROIDECTOMY COMPARISON: 12/04/2024 TECHNIQUE: br.br.br.br.br.br atherosclerotic calcifications. Layering small pleural effusions and bibasilar atelectasis, similar to comparison. No visible pneumothorax. IMPRESSION: Stable layering pleural effusions and bibasilar atelectasis. THIS IS AN ELECTRONICALLY VERIFIED FINAL REPORT 12/05/2024 7:29 AM - Electronically signed by Spencer Lutz MD
[2024-12-05] MEDS: POTASSIUM CHLORIDE LIQ PO SCH (08:23)
[2024-12-05] MEDS: MAG-OX TAB PO SCH (08:24)
[2024-12-05 08:34] LABS: ABG BASE EXCESS 18.1 mmol/L (-2.0-2.0); ABG PCO2 49.0 mmHg (35.0-45.0); ABG PH 7.550 (7.35-7.45)
[2024-12-05 08:35] LABS: ABG ALLEN TEST POS; ABG HCO3 42.9 mmol/L (22-26); ABG OXYGEN SATURATION 85.0 % (90-100); ABG PO2 43.0 mmHg (80.0-100.0)
[2024-12-05] MEDS ORDERED: K-DUR TAB 20 MEQ PO SCH (09:00)
--- NOTE | 2024-12-05 15:45 | NOTE.SOAP ---
Soap Note Note for Day of Date of Exam: 12/05/24 Subjective Data Subjective Data: No overnight events. Did not wear the BiPAP all night. Has been ambulating with her seen since yesterday. ABG shows hypoxemia and hypercapnia. Home sleep study from PCPs office does show moderate sleep apnea. She does not have a working CPAP at home right now. O2 quickly desats on room air at rest. Objective Data Objective Data: Elderly, obese female in no acute distress. Head NCAT, hearing grossly normal. Lungs diminished with rales on the left but clear on the right. Heart regular rate and rhythm. Mood and affect are appropriate. Assessment Assessment: Afib w/ RVR, now in NSR. Pleural effusions, improving. Lt> right. Pericardial effusion, improving. Acute hypoxemic respiratory failure, improving. PHTN, mild. Moderate sleep apnea, HST scanned in today. Morbid obesity with likely obesity-hypoventilation syndrome, chronic. JORDY, resolved. Present at admission. Plan Plan: Patient needs an APAP or CPAP at home. Patient also needs continuous home O2. Will plan on keeping her over the weekend as she cannot get a CPAP until early next week due to insurance approval. Continue diuresis. Replace potassium. Monitor labs and vitals. Will need to discharge home and amiodarone twice daily along with her metoprolol and Eliquis.
[2024-12-05] MEDS: RESTORIL CAP 15 MG PO PRN (20:35)
[2024-12-06 04:57] LABS: MEAN PLATELET VOLUME 9.6 fL (7.4-11.0); RED CELL DISTRIBUTION WIDTH 14.2 % (11.6-16.5)
[2024-12-06 05:06] LABS: COR CA(FOR HYPOALB) 9.7 mg/dL (8.5-10.1); CREATININE 1.41 mg/dL (0.55-1.02); eGFR NON BLACK RACES 38 (>60)
[2024-12-06] MEDS ORDERED: CONSULT PHARMACY - POTASSIUM & MAGNESIUM XX SCH (06:00)
[2024-12-06] MEDS: POTASSIUM CHLORIDE LIQ PO SCH (06:25)
[2024-12-06] MEDS: MAG-OX TAB PO SCH (08:28)
[2024-12-06] MEDS: LASIX IVP SCH (09:12)
[2024-12-06] MEDS: K-DUR TAB 20 MEQ PO SCH (10:10)
--- NOTE | 2024-12-06 10:26 | PCM.PROG ---
Progress Note Progress Note for Day of Date of Exam: 12/06/24 Subjective Subjective: Patient is a 79-year-old female admitted for A-fib with RVR and pleural effusion on the left. This morning she is resting comfortably in the recliner. No acute events overnight. She was a little hypotensive this morning. We will discontinue the Norvasc and just give her half dose of Lasix this morning as well as a half dose of metoprolol. Will continue to monitor her vitals. Otherwise continue with regular dosing at scheduled times. Labs/imaging: WBC 12.4, hemoglobin 10.8, platelets 391, sodium 141, potassium 2.5, creatinine 1.41, glucose 110. Will replete electrolytes per protocol. Continue home medications. Otherwise continue with current treatment plan. Continue closely monitor and follow-up labs/imaging. Time spent for clinical assessment, reviewing labs/imaging, physical exam, decision making and documentation greater than 45 mins. Past Medical Family Social History Allergies: Allergies No Known Drug Allergies Allergy (Unknown, Verified 12/01/24 15:51) Onset Date: 05/09/2021 Review of Systems ROS changes noted: see HPI Vital Signs and I&O's Vital Signs: Vital Signs Temperature 97.3 F Temperature 97.8 F Pulse Rate 81 Pulse Rate 82 Pulse Rate 81 Pulse Rate 79 Pulse Rate 84 Pulse Rate 83 Pulse Rate 88 Pulse Rate 69 Pulse Rate 65 Pulse Rate 65 Pulse Rate 64 Respiratory Rate 29 Respiratory Rate 28 Respiratory Rate 26 Respiratory Rate 34 Respiratory Rate 26 Respiratory Rate 30 Respiratory Rate 25 Respiratory Rate 19 Respiratory Rate 27 Respiratory Rate 26 Blood Pressure 115/58 Blood Pressure 99/54 Blood Pressure 103/56 Blood Pressure 96/53 Blood Pressure 100/60 Blood Pressure 122/60 Blood Pressure 98/56 Blood Pressure 92/50 O2 Sat by Pulse Oximetry 95 O2 Sat by Pulse Oximetry 98 O2 Sat by Pulse Oximetry 93 O2 Sat by Pulse Oximetry 93 O2 Sat by Pulse Oximetry 91 O2 Sat by Pulse Oximetry 93 O2 Sat by Pulse Oximetry 90 O2 Sat by Pulse Oximetry 93 O2 Sat by Pulse Oximetry 95 O2 Sat by Pulse Oximetry 94 O2 Sat by Pulse Oximetry 93 Intake and Output: Intake & Output 12/03/24 12/04/24 12/05/24 12/06/24 23:59 23:59 23:59 23:59 Intake Total 1085 / 1085 1230 / 1230 1470 / 1470 35 / 35 Output Total 3305 / 3305 3090 / 3090 2525 / 2525 600 / 600 Balance -2220 / -2220 -1860 / -1860 -1055 / -1055 -565 / -565 Physical Exam Oriented: Normal Eyes: Normal Ear: Normal Nose: Normal Respiratory: Diminished Cardiovascular: Normal Auscultation: Bowel Sounds: Normal Palpation: Normal Tenderness: Normal Skin: Normal Psychiatric: Normal Speech Pattern: Clear and Appropriate Laboratory and Diagnostics 12/06/24 04:09 12/06/24 04:09 Labs: 12/01/24 16:12 Blood Blood Culture Gram Stain - Final 12/01/24 16:12 Blood Blood Culture - Final 12/01/24 17:15 Blood Blood Culture - Preliminary Laboratory WBC 12.4 X10^3/uL (3.6-10.0) H 12/06/24 04:09 RBC 4.08 X10^6/uL (3.5-5.4) 12/06/24 04:09 Hgb 10.8 g/dL (12.0-16.0) L 12/06/24 04:09 Hct 32.7 % (36.0-47.0) L 12/06/24 04:09 MCV 80.1 fL (80.0-100.0) 12/06/24 04:09 MCH 26.4 pg (27.0-34.0) L 12/06/24 04:09 MCHC 33.0 g/dL (33.0-35.0) 12/06/24 04:09 RDW 14.2 % (11.6-16.5) 12/06/24 04:09 Plt Count 391 X10^3/uL (150.0-450.0) 12/06/24 04:09 Plt Count Comment Increased (ADEQUATE) A 12/03/24 09:33 MPV 9.6 fL (7.4-11.0) 12/06/24 04:09 Neut % (Auto) 83.6 % (42.0-75.0) H 12/06/24 04:09 Lymph % (Auto) 7.8 % (21.0-51.0) L 12/06/24 04:09 [place] % (Auto) 7.5 % (0.0-13.0) 12/06/24 04:09 Eos % (Auto) 0.5 % (0.9-2.9) L 12/06/24 04:09 Baso % (Auto) 0.6 % (0.2-1.0) 12/06/24 04:09 Neut # (Auto) 10.4 x10^3/uL (2.2-4.8) H 12/06/24 04:09 Lymph # (Auto) 1.0 X10^3/uL (1.3-2.9) L 12/06/24 04:09 [place] # (Auto) 0.9 x10^3/uL (0.3-0.8) H 12/06/24 04:09 Eos # (Auto) 0.1 x10^3/uL (0.0-0.2) 12/06/24 04:09 Baso # (Auto) 0.1 X10^3/uL (0.0-0.1) 12/06/24 04:09 Absolute Nucleated RBC 0.1 /100WBC 12/06/24 04:09 Total Counted 100 12/03/24 09:33 Neutrophils % (Manual) 88 % (39-76) H 12/03/24 09:33 Band Neutrophils % 2 % (0-10) 12/03/24 09:33 Lymphocytes % (Manual) 6 % (13-43) L 12/03/24 09:33 Monocytes % (Manual) 4 % (4-9) 12/03/24 09:33 Plt Morphology Comment Normal (NORMAL) 12/03/24 09:33 RBC Morphology Normal (NORMAL) 12/03/24 09:33 Hypochromasia Slight A 12/02/24 05:10 PT 27.5 SECONDS (11.8-14.3) 12/02/24 05:10 INR Target Range - 12/02/24 05:10 INR 2.53 (0.8-1.3) H 12/02/24 05:10 APTT 51.9 SECONDS (22.9-36.5) H 12/01/24 16:12 PTT Comment - 12/01/24 16:12 D-Dimer 5.52 ug/ml (0.0-0.57) H 12/01/24 16:12 D-Dimer Cancelled 12/01/24 16:12 Sample Site Lrad 12/05/24 07:42 ABG pH 7.550 (7.35-7.45) H 12/05/24 07:42 ABG pCO2 49.0 mmHg (35.0-45.0) H 12/05/24 07:42 ABG pO2 43.0 mmHg (80.0-100.0) L* 12/05/24 07:42 ABG HCO3 42.9 mmol/L (22-26) H* 12/05/24 07:42 ABG O2 Saturation 85.0 % (90-100) L 12/05/24 07:42 ABG Base Excess 18.1 mmol/L (-2.0-2.0) H 12/05/24 07:42 [place] Test Pos 12/05/24 07:42 A-a Gradient 45.0 mmHg 12/05/24 07:42 FiO2 21.0 12/05/24 07:42 Blood Gas Comments Pt angel well elj 12/05/24 07:42 Sodium 141 mmol/L (136-145) 12/06/24 04:09 Corrected Sodium TNP 12/06/24 04:09 Potassium 2.5 mmol/L (3.5-5.1) L* 12/06/24 04:09 Chloride 95 mmol/L (98-107) L 12/06/24 04:09 Carbon Dioxide 43.8 mmol/L (21-32) H 12/06/24 04:09 BUN 22 mg/dL (7-18) H 12/06/24 04:09 Creatinine 1.41 mg/dL (0.55-1.02) H 12/06/24 04:09 Est GFR (MDRD) Af Amer 47 (>60) L 12/06/24 04:09 Est GFR (MDRD) Non-Af 38 (>60) L 12/06/24 04:09 Glucose 110 mg/dL (65-99) H 12/06/24 04:09 Lactic Acid 2.0 mmol/L (0.4-2.0) 12/01/24 17:15 Calcium 8.4 mg/dL (8.5-10.1) L 12/06/24 04:09 Corrected Calcium 9.7 mg/dL (8.5-10.1) 12/06/24 04:09 Magnesium 2.0 mg/dL (2.0-2.9) 12/06/24 04:09 Total Bilirubin 0.60 mg/dL (0.2-1.0) 12/06/24 04:09 AST 45 Units/L (15-37) H 12/06/24 04:09 ALT 58 Units/L (12-78) 12/06/24 04:09 Alkaline Phosphatase 136 Units/L (46-116) H 12/06/24 04:09 Creatine Kinase 18 Units/L (26-192) L 12/01/24 16:12 Troponin I High Sens 6.4 ng/L (4.0-60.0) 12/03/24 19:35 B-Natriuretic Peptide 237 pg/mL (0-79) H 12/01/24 16:12 Total Protein 7.1 g/dL (6.4-8.2) 12/06/24 04:09 Albumin 2.4 g/dL (3.4-5.0) L 12/06/24 04:09 Globulin 4.7 g/dL (2.5-4.5) H 12/06/24 04:09 Albumin/Globulin Ratio 0.5 Ratio (1.1-2.1) L 12/06/24 04:09 Specimen Type Catherized urine 12/03/24 09:44 Urine Color Yellow (YELLOW) 12/03/24 09:44 Urine Appearance Clear (CLEAR) 12/03/24 09:44 Urine pH 5.0 (5.0 - 8.0) 12/03/24 09:44 Ur Specific [place] 1.015 (1.000-1.030) 12/03/24 09:44 Urine Protein 1+ (NEGATIVE) 12/03/24 09:44 Urine Glucose (UA) Negative (NEGATIVE) 12/03/24 09:44 Urine Ketones Negative (NEGATIVE) 12/03/24 09:44 Urine Blood Negative (NEGATIVE) 12/03/24 09:44 Urine Nitrite Negative (NEGATIVE) 12/03/24 09:44 Urine Bilirubin Negative (NEGATIVE) 12/03/24 09:44 Urine Urobilinogen Normal (NORMAL) 12/03/24 09:44 Ur Leukocyte Esterase Negative (NEGATIVE) 12/03/24 09:44 Urine RBC None seen /HPF (0-3) 12/03/24 09:44 Urine WBC 0-2 /HPF (0-5) 12/03/24 09:44 Ur Squamous Epith Cells Rare /HPF (NEGATIVE) 12/03/24 09:44 Urine Bacteria Negative /HPF (NEGATIVE) 12/03/24 09:44 Ur Culture Indicated? No/not indicated 12/03/24 09:44 Plan (1) Atrial fibrillation with rapid ventricular response: Status: Acute (2) Pleural effusion on left: Status: Acute (3) Pulmonary hypertension: Status: Acute (4) Morbid obesity: Status: Chronic (5) Essential (primary) hypertension: Status: Chronic (6) Mixed hyperlipidemia: Status: Chronic (7) Prediabetes: Status: Chronic (8) CHF (congestive heart failure): Status: Acute
[2024-12-07 05:13] LABS: MEAN PLATELET VOLUME 9.7 fL (7.4-11.0); RED CELL DISTRIBUTION WIDTH 14.5 % (11.6-16.5)
[2024-12-07 05:28] LABS: COR CA(FOR HYPOALB) 9.7 mg/dL (8.5-10.1); CREATININE 1.30 mg/dL (0.55-1.02); eGFR NON BLACK RACES 42 (>60)
[2024-12-07] MEDS ORDERED: CONSULT PHARMACY - POTASSIUM & MAGNESIUM XX SCH (06:00)
--- NOTE | 2024-12-07 10:10 | PCM.PROG ---
Progress Note Progress Note for Day of Date of Exam: 12/07/24 Subjective Subjective: Patient is a 79-year-old female admitted for A-fib with RVR and pleural effusion on the left. This morning she is laying in bed. No acute events overnight. Her blood pressure has improved. We discontinued her Norvasc and will continue with IV Lasix. Her heart rate is mildly elevated, she is now receiving her antiarrhythmic medications at this time. Will continue to monitor her vitals. Otherwise continue with regular dosing at scheduled times. Labs/imaging: WBC 13.7, hemoglobin 10.8, platelets 375, sodium 140, potassium 2.8, creatinine 1.30, glucose 106. Blood culture contamination/no growth to date. Will replete electrolytes per protocol. Continue home medications. Otherwise continue with current treatment plan. Continue closely monitor and follow-up labs/imaging. Time spent for clinical assessment, reviewing labs/imaging, physical exam, decision making and documentation greater than 45 mins. Past Medical Family Social History Allergies: Allergies No Known Drug Allergies Allergy (Unknown, Verified 12/01/24 15:51) Onset Date: 05/09/2021 Review of Systems ROS changes noted: see HPI Vital Signs and I&O's Vital Signs: Vital Signs Temperature 98.0 F Temperature 97.9 F Pulse Rate 106 Pulse Rate 108 Pulse Rate 117 Pulse Rate 89 Pulse Rate 98 Pulse Rate 96 Pulse Rate 69 Respiratory Rate 24 Respiratory Rate 24 Respiratory Rate 28 Respiratory Rate 20 Respiratory Rate 35 Respiratory Rate 25 Respiratory Rate 27 Blood Pressure 108/70 Blood Pressure 138/81 Blood Pressure 106/73 Blood Pressure 115/75 Blood Pressure 127/63 Blood Pressure 127/67 O2 Sat by Pulse Oximetry 94 O2 Sat by Pulse Oximetry 95 O2 Sat by Pulse Oximetry 94 O2 Sat by Pulse Oximetry 99 O2 Sat by Pulse Oximetry 95 O2 Sat by Pulse Oximetry 95 O2 Sat by Pulse Oximetry 95 Intake and Output: Intake & Output 12/04/24 12/05/24 12/06/24 12/07/24 23:59 23:59 23:59 23:59 Intake Total 1230 / 1230 1470 / 1470 1279 / 1279 35 / 35 Output Total 3090 / 3090 2525 / 2525 1750 / 1750 100 / 100 Balance -1860 / -1860 -1055 / -1055 -471 / -471 -65 / -65 Physical Exam Oriented: Normal Eyes: Normal Ear: Normal Nose: Normal Respiratory: Diminished Cardiovascular: Normal Auscultation: Bowel Sounds: Normal Tenderness: Normal Skin: Normal Psychiatric: Normal Speech Pattern: Clear and Appropriate Laboratory and Diagnostics 12/07/24 04:15 12/07/24 04:15 Labs: 12/01/24 16:12 Blood Blood Culture Gram Stain - Final 12/01/24 16:12 Blood Blood Culture - Final 12/01/24 17:15 Blood Blood Culture - Preliminary Laboratory WBC 13.7 X10^3/uL (3.6-10.0) H 12/07/24 04:15 RBC 4.13 X10^6/uL (3.5-5.4) 12/07/24 04:15 Hgb 10.8 g/dL (12.0-16.0) L 12/07/24 04:15 Hct 33.5 % (36.0-47.0) L 12/07/24 04:15 MCV 81.0 fL (80.0-100.0) 12/07/24 04:15 MCH 26.1 pg (27.0-34.0) L 12/07/24 04:15 MCHC 32.3 g/dL (33.0-35.0) L 12/07/24 04:15 RDW 14.5 % (11.6-16.5) 12/07/24 04:15 Plt Count 375 X10^3/uL (150.0-450.0) 12/07/24 04:15 Plt Count Comment Increased (ADEQUATE) A 12/03/24 09:33 MPV 9.7 fL (7.4-11.0) 12/07/24 04:15 Neut % (Auto) 81.4 % (42.0-75.0) H 12/07/24 04:15 Lymph % (Auto) 9.6 % (21.0-51.0) L 12/07/24 04:15 [place] % (Auto) 7.4 % (0.0-13.0) 12/07/24 04:15 Eos % (Auto) 0.6 % (0.9-2.9) L 12/07/24 04:15 Baso % (Auto) 1.0 % (0.2-1.0) 12/07/24 04:15 Neut # (Auto) 11.2 x10^3/uL (2.2-4.8) H 12/07/24 04:15 Lymph # (Auto) 1.3 X10^3/uL (1.3-2.9) 12/07/24 04:15 [place] # (Auto) 1.0 x10^3/uL (0.3-0.8) H 12/07/24 04:15 Eos # (Auto) 0.1 x10^3/uL (0.0-0.2) 12/07/24 04:15 Baso # (Auto) 0.1 X10^3/uL (0.0-0.1) 12/07/24 04:15 Absolute Nucleated RBC 0.0 /100WBC 12/07/24 04:15 Total Counted 100 12/03/24 09:33 Neutrophils % (Manual) 88 % (39-76) H 12/03/24 09:33 Band Neutrophils % 2 % (0-10) 12/03/24 09:33 Lymphocytes % (Manual) 6 % (13-43) L 12/03/24 09:33 Monocytes % (Manual) 4 % (4-9) 12/03/24 09:33 Plt Morphology Comment Normal (NORMAL) 12/03/24 09:33 RBC Morphology Normal (NORMAL) 12/03/24 09:33 Hypochromasia Slight A 12/02/24 05:10 PT 27.5 SECONDS (11.8-14.3) 12/02/24 05:10 INR Target Range - 12/02/24 05:10 INR 2.53 (0.8-1.3) H 12/02/24 05:10 APTT 51.9 SECONDS (22.9-36.5) H 12/01/24 16:12 PTT Comment - 12/01/24 16:12 D-Dimer 5.52 ug/ml (0.0-0.57) H 12/01/24 16:12 D-Dimer Cancelled 12/01/24 16:12 Sample Site Lrad 12/05/24 07:42 ABG pH 7.550 (7.35-7.45) H 12/05/24 07:42 ABG pCO2 49.0 mmHg (35.0-45.0) H 12/05/24 07:42 ABG pO2 43.0 mmHg (80.0-100.0) L* 12/05/24 07:42 ABG HCO3 42.9 mmol/L (22-26) H* 12/05/24 07:42 ABG O2 Saturation 85.0 % (90-100) L 12/05/24 07:42 ABG Base Excess 18.1 mmol/L (-2.0-2.0) H 12/05/24 07:42 [place]ez Test Pos 12/05/24 07:42 A-a Gradient 45.0 mmHg 12/05/24 07:42 FiO2 21.0 12/05/24 07:42 Blood Gas Comments Pt angel well elj 12/05/24 07:42 Sodium 140 mmol/L (136-145) 12/07/24 04:15 Corrected Sodium TNP 12/07/24 04:15 Potassium 2.8 mmol/L (3.5-5.1) L* 12/07/24 04:15 Chloride 95 mmol/L (98-107) L 12/07/24 04:15 Carbon Dioxide 42.0 mmol/L (21-32) H 12/07/24 04:15 BUN 19 mg/dL (7-18) H 12/07/24 04:15 Creatinine 1.30 mg/dL (0.55-1.02) H 12/07/24 04:15 Est GFR (MDRD) Af Amer 51 (>60) L 12/07/24 04:15 Est GFR (MDRD) Non-Af 42 (>60) L 12/07/24 04:15 Glucose 106 mg/dL (65-99) H 12/07/24 04:15 Lactic Acid 2.0 mmol/L (0.4-2.0) 12/01/24 17:15 Calcium 8.7 mg/dL (8.5-10.1) 12/07/24 04:15 Corrected Calcium 9.7 mg/dL (8.5-10.1) 12/07/24 04:15 Magnesium 2.0 mg/dL (2.0-2.9) 12/07/24 04:15 Total Bilirubin 0.60 mg/dL (0.2-1.0) 12/07/24 04:15 AST 33 Units/L (15-37) 12/07/24 04:15 ALT 52 Units/L (12-78) 12/07/24 04:15 Alkaline Phosphatase 126 Units/L (46-116) H 12/07/24 04:15 Creatine Kinase 18 Units/L (26-192) L 12/01/24 16:12 Troponin I High Sens 6.4 ng/L (4.0-60.0) 12/03/24 19:35 B-Natriuretic Peptide 237 pg/mL (0-79) H 12/01/24 16:12 Total Protein 7.3 g/dL (6.4-8.2) 12/07/24 04:15 Albumin 2.7 g/dL (3.4-5.0) L 12/07/24 04:15 Globulin 4.6 g/dL (2.5-4.5) H 12/07/24 04:15 Albumin/Globulin Ratio 0.6 Ratio (1.1-2.1) L 12/07/24 04:15 Specimen Type Catherized urine 12/03/24 09:44 Urine Color Yellow (YELLOW) 12/03/24 09:44 Urine Appearance Clear (CLEAR) 12/03/24 09:44 Urine pH 5.0 (5.0 - 8.0) 12/03/24 09:44 Ur Specific [place] 1.015 (1.000-1.030) 12/03/24 09:44 Urine Protein 1+ (NEGATIVE) 12/03/24 09:44 Urine Glucose (UA) Negative (NEGATIVE) 12/03/24 09:44 Urine Ketones Negative (NEGATIVE) 12/03/24 09:44 Urine Blood Negative (NEGATIVE) 12/03/24 09:44 Urine Nitrite Negative (NEGATIVE) 12/03/24 09:44 Urine Bilirubin Negative (NEGATIVE) 12/03/24 09:44 Urine Urobilinogen Normal (NORMAL) 12/03/24 09:44 Ur Leukocyte Esterase Negative (NEGATIVE) 12/03/24 09:44 Urine RBC None seen /HPF (0-3) 12/03/24 09:44 Urine WBC 0-2 /HPF (0-5) 12/03/24 09:44 Ur Squamous Epith Cells Rare /HPF (NEGATIVE) 12/03/24 09:44 Urine Bacteria Negative /HPF (NEGATIVE) 12/03/24 09:44 Ur Culture Indicated? No/not indicated 12/03/24 09:44 Plan (1) Atrial fibrillation with rapid ventricular response: Status: Acute (2) Pleural effusion on left: Status: Acute (3) Pulmonary hypertension: Status: Acute (4) Morbid obesity: Status: Chronic (5) Essential (primary) hypertension: Status: Chronic (6) Mixed hyperlipidemia: Status: Chronic (7) Prediabetes: Status: Chronic (8) CHF (congestive heart failure): Status: Acute
[2024-12-07] MEDS: K-DUR TAB 20 MEQ PO SCH (10:14)
[2024-12-07] MEDS: LASIX IVP ONE (10:14)
[2024-12-07] MEDS: CORDARONE TAB 200 MG PO SCH (11:11)
[2024-12-08 04:58] LABS: MEAN PLATELET VOLUME 9.4 fL (7.4-11.0); RED CELL DISTRIBUTION WIDTH 14.3 % (11.6-16.5)
[2024-12-08 05:10] LABS: COR CA(FOR HYPOALB) 10.0 mg/dL (8.5-10.1); CREATININE 1.67 mg/dL (0.55-1.02); eGFR NON BLACK RACES 32 (>60)
[2024-12-08] MEDS ORDERED: CONSULT PHARMACY - POTASSIUM & MAGNESIUM XX SCH (07:00)
--- NOTE | 2024-12-08 07:58 | NOTE.SOAP ---
Soap Note Note for Day of Date of Exam: 12/08/24 Subjective Data Subjective Data: went back into afib 330 this am-eating breakfast and wearing only NC o2- sats 92%- breathing much easier than last week but tired Objective Data Objective Data: i/o up300 but liters removed daily over last 5 days lungs :decreased bs left lower lung>> r, irreg , mild edema legs labs: wbc down 13k hct 32 k 3.3 alb 2.8 cr 1.67 cxr: awaiting Assessment Assessment: afib/l pleural effusion, low K,low albumin, cr up alittle Plan Plan: cont amio/bb/doac- will push amio to 400 bid- await cxr- will see if need to tap lung-if we do will hold doac for 2 days
[2024-12-08] MEDS: CORDARONE TAB 200 MG PO SCH (09:22)
[2024-12-08] MEDS: K-DUR TAB 20 MEQ PO SCH (09:22)
--- NOTE | 2024-12-08 09:30 | NOTE.SOAP ---
Soap Note Note for Day of Date of Exam: 12/08/24 Subjective Data Subjective Data: Patient went back into A-fib yesterday. She has been compliant with her BiPAP through the weekend. Did have some hypotension with amlodipine being held. Cardiology still following. Chest x-ray pending for today. Labs show stable anemia, CKD with slight rise in creatinine, improved hypokalemia, and mild leukocytosis. Objective Data Objective Data: Elderly, obese female in no acute distress. Hearing intact conversation, head NCAT, speech clear. Heart irregularly, irregular with no murmur. Lungs di minished with rales at the bases, good air movement. Mood and affect are appropriate. No swelling of her extremities with good range of motion and appropriate strength. Assessment Assessment: 1. HFpEF exacerbation, acute. 2. Mild pulmonary hypertension secondary to obesity and untreated sleep apnea. 3. Moderate CONSUELO. 4. OHS. 5. Persistent atrial fibrillation. 6. Morbid obesity. 6. Anemia of CKD 3B. Plan Plan: Out of bed is much as we can get her, continue diuresis, continue amiodarone and beta-alessandra, continue O2 supplementation via BiPAP and nasal cannula. Plan on discharge once she has a CPAP at home.
[2024-12-08] MEDS ORDERED: K-DUR TAB 20 MEQ PO SCH (10:00)
--- NOTE | 2024-12-08 14:09 | RAD ---
EXAM: CHEST, 1 VIEW HISTORY: SOB, COUGH, SLEEP APNEA; COMPARISON: 12/05/2024 FINDINGS: The cardiomediastinal silhouette is stable. Similar left-sided effusion. Possible small right-sided effusion. No pneumothorax. No acute osseous abnormality. IMPRESSION: Similar effusions, [id number]. THIS IS AN ELECTRONICALLY VERIFIED FINAL REPORT 12/08/2024 2:06 PM - Electronically signed by Fracisco Sutton MD
[2024-12-08] MEDS ORDERED: NORCO 5/325 MG TAB PO PRN (20:26)
[2024-12-08] MEDS: ULTRAM PO PRN (21:20)
[2024-12-09 05:11] LABS: MEAN PLATELET VOLUME 9.6 fL (7.4-11.0); RED CELL DISTRIBUTION WIDTH 14.2 % (11.6-16.5)
[2024-12-09 05:20] LABS: COR CA(FOR HYPOALB) 10.1 mg/dL (8.5-10.1); CREATININE 1.47 mg/dL (0.55-1.02); eGFR NON BLACK RACES 37 (>60)
--- NOTE | 2024-12-09 08:18 | RAD ---
EXAM: CHEST, 1 VIEW HISTORY: SOB, SLEEP APNEA, PULMONARY HTN ; HTN, DM, RENAL DISEASE, GERD, AFIB SX: ORTHO, PARATHYOIDECTOMY COMPARISON: 12/08/2024 TECHNIQUE: r.br.br.br.br.br pleural effusion and left basilar atelectasis. Decreased right pleural effusion. No visible pneumothorax. IMPRESSION: Decreased right pleural effusion. Stable layering left pleural effusion and left basilar atelectasis. THIS IS AN ELECTRONICALLY VERIFIED FINAL REPORT 12/09/2024 8:15 AM - Electronically signed by Spencer Lutz MD
--- NOTE | 2024-12-09 08:27 | NOTE.SOAP ---
Soap Note Note for Day of Date of Exam: 12/09/24 Subjective Data Subjective Data: Wore BiPAP most of day yesterday. Effusions improving on CXR. WBCs improving, HGB stable, SCr stable, AST/ALT elevated, sugar stable, K+ improving. Vitals stable. No overnight events. Objective Data Objective Data: Morbidly obese female eating breakfast in no acute distress. Hearing intact conversation, speech much stronger and clear, head NCAT. Heart irregularly, regular. Good, clear breath sounds except for dullness at the left lower lobe. Belly is soft and nontender with bowel sounds present. Assessment Assessment: 1. HFpEF exacerbation, acute. 2. Mild pulmonary hypertension secondary to obesity and untreated sleep apnea. 3. Moderate CONSUELO. 4. OHS. 5. Persistent atrial fibrillation. 6. Morbid obesity, chronic 7. Anemia of CKD 3B, stable 8. Acute hypoxemic & hypercapnic respiratory failure, improving 9. b/l pleural effusions, improving Plan Plan: Plan discharge tomorrow AM. Has appointment with respiratory at home to start CPAP, again.
[2024-12-10 05:43] LABS: MEAN PLATELET VOLUME 9.5 fL (7.4-11.0); RED CELL DISTRIBUTION WIDTH 14.6 % (11.6-16.5)
[2024-12-10 05:59] LABS: COR CA(FOR HYPOALB) 9.9 mg/dL (8.5-10.1); CREATININE 1.42 mg/dL (0.55-1.02); eGFR NON BLACK RACES 38 (>60)
[2024-12-10 08:52] VITALS: PULSE 71; O2SAT 99
[2024-12-10 09:11] VITALS: BP 112/66; RESP 20; TEMP 97.9
--- NOTE | 2024-12-11 08:24 | PCM.DCPLAN ---
DISCHARGE SUMMARY Admission Date Date of Admission: 12/01/24 Discharge Date Discharge Date: 12/10/24 Admission Diagnoses (1) Atrial fibrillation with rapid ventricular response: Status: Acute (2) Pleural effusion on left: Status: Acute (3) Pulmonary hypertension: Status: Acute (4) Morbid obesity: Status: Chronic (5) Essential (primary) hypertension: Status: Chronic (6) Mixed hyperlipidemia: Status: Chronic (7) Prediabetes: Status: Chronic (8) CHF (congestive heart failure): Status: Acute Discharge Medications Discharge Medications: Prescriptions: Hospital Course Vital Signs: Vital Signs Temperature 98.2 F Temperature 97.9 F Pulse Rate 60 Pulse Rate 66 Pulse Rate 64 Respiratory Rate 18 Respiratory Rate 21 Blood Pressure 120/77 Blood Pressure 114/71 O2 Sat by Pulse Oximetry 97 O2 Sat by Pulse Oximetry 97 O2 Sat by Pulse Oximetry 96 Latest Lab Results: Laboratory Last Values WBC 9.6 X10^3/uL (3.6-10.0) 12/10/24 05:07 RBC 3.86 X10^6/uL (3.5-5.4) 12/10/24 05:07 Hgb 10.2 g/dL (12.0-16.0) L 12/10/24 05:07 Hct 31.2 % (36.0-47.0) L 12/10/24 05:07 MCV 80.8 fL (80.0-100.0) 12/10/24 05:07 MCH 26.3 pg (27.0-34.0) L 12/10/24 05:07 MCHC 32.6 g/dL (33.0-35.0) L 12/10/24 05:07 RDW 14.6 % (11.6-16.5) 12/10/24 05:07 Plt Count 365 X10^3/uL (150.0-450.0) 12/10/24 05:07 Plt Count Comment Increased (ADEQUATE) A 12/03/24 09:33 MPV 9.5 fL (7.4-11.0) 12/10/24 05:07 Neut % (Auto) 74.3 % (42.0-75.0) 12/10/24 05:07 Lymph % (Auto) 15.0 % (21.0-51.0) L 12/10/24 05:07 [place] % (Auto) 7.3 % (0.0-13.0) 12/10/24 05:07 Eos % (Auto) 2.8 % (0.9-2.9) 12/10/24 05:07 Baso % (Auto) 0.6 % (0.2-1.0) 12/10/24 05:07 Neut # (Auto) 7.2 x10^3/uL (2.2-4.8) H 12/10/24 05:07 Lymph # (Auto) 1.4 X10^3/uL (1.3-2.9) 12/10/24 05:07 [place] # (Auto) 0.7 x10^3/uL (0.3-0.8) 12/10/24 05:07 Eos # (Auto) 0.3 x10^3/uL (0.0-0.2) H 12/10/24 05:07 Baso # (Auto) 0.1 X10^3/uL (0.0-0.1) 12/10/24 05:07 Absolute Nucleated RBC 0.1 /100WBC 12/10/24 05:07 Total Counted 100 12/03/24 09:33 Neutrophils % (Manual) 88 % (39-76) H 12/03/24 09:33 Band Neutrophils % 2 % (0-10) 12/03/24 09:33 Lymphocytes % (Manual) 6 % (13-43) L 12/03/24 09:33 Monocytes % (Manual) 4 % (4-9) 12/03/24 09:33 Plt Morphology Comment Normal (NORMAL) 12/03/24 09:33 RBC Morphology Normal (NORMAL) 12/03/24 09:33 Hypochromasia Slight A 12/02/24 05:10 PT 27.5 SECONDS (11.8-14.3) 12/02/24 05:10 INR Target Range - 12/02/24 05:10 INR 2.53 (0.8-1.3) H 12/02/24 05:10 APTT 51.9 SECONDS (22.9-36.5) H 12/01/24 16:12 PTT Comment - 12/01/24 16:12 D-Dimer 5.52 ug/ml (0.0-0.57) H 12/01/24 16:12 D-Dimer Cancelled 12/01/24 16:12 Sample Site Lrad 12/05/24 07:42 ABG pH 7.550 (7.35-7.45) H 12/05/24 07:42 ABG pCO2 49.0 mmHg (35.0-45.0) H 12/05/24 07:42 ABG pO2 43.0 mmHg (80.0-100.0) L* 12/05/24 07:42 ABG HCO3 42.9 mmol/L (22-26) H* 12/05/24 07:42 ABG O2 Saturation 85.0 % (90-100) L 12/05/24 07:42 ABG Base Excess 18.1 mmol/L (-2.0-2.0) H 12/05/24 07:42 [place] Test Pos 12/05/24 07:42 A-a Gradient 45.0 mmHg 12/05/24 07:42 FiO2 21.0 12/05/24 07:42 Blood Gas Comments Pt angel well elj 12/05/24 07:42 Sodium 141 mmol/L (136-145) 12/10/24 05:07 Corrected Sodium TNP 12/10/24 05:07 Potassium 3.7 mmol/L (3.5-5.1) 12/10/24 05:07 Chloride 97 mmol/L (98-107) L 12/10/24 05:07 Carbon Dioxide 36.5 mmol/L (21-32) H 12/10/24 05:07 BUN 28 mg/dL (7-18) H 12/10/24 05:07 Creatinine 1.42 mg/dL (0.55-1.02) H 12/10/24 05:07 Est GFR (MDRD) Af Amer 46 (>60) L 12/10/24 05:07 Est GFR (MDRD) Non-Af 38 (>60) L 12/10/24 05:07 Glucose 91 mg/dL (65-99) 12/10/24 05:07 Lactic Acid 2.0 mmol/L (0.4-2.0) 12/01/24 17:15 Calcium 9.0 mg/dL (8.5-10.1) 12/10/24 05:07 Corrected Calcium 9.9 mg/dL (8.5-10.1) 12/10/24 05:07 Magnesium 2.2 mg/dL (2.0-2.9) 12/09/24 04:19 Total Bilirubin 0.30 mg/dL (0.2-1.0) 12/10/24 05:07 AST 77 Units/L (15-37) H 12/10/24 05:07 ALT 92 Units/L (12-78) H 12/10/24 05:07 Alkaline Phosphatase 103 Units/L (46-116) 12/10/24 05:07 Creatine Kinase 18 Units/L (26-192) L 12/01/24 16:12 Troponin I High Sens 6.4 ng/L (4.0-60.0) 12/03/24 19:35 B-Natriuretic Peptide 237 pg/mL (0-79) H 12/01/24 16:12 Total Protein 7.1 g/dL (6.4-8.2) 12/10/24 05:07 Albumin 2.9 g/dL (3.4-5.0) L 12/10/24 05:07 Globulin 4.2 g/dL (2.5-4.5) 12/10/24 05:07 Albumin/Globulin Ratio 0.7 Ratio (1.1-2.1) L 12/10/24 05:07 Specimen Type Catherized urine 12/03/24 09:44 Urine Color Yellow (YELLOW) 12/03/24 09:44 Urine Appearance Clear (CLEAR) 12/03/24 09:44 Urine pH 5.0 (5.0 - 8.0) 12/03/24 09:44 Ur Specific [place] 1.015 (1.000-1.030) 12/03/24 09:44 Urine Protein 1+ (NEGATIVE) 12/03/24 09:44 Urine Glucose (UA) Negative (NEGATIVE) 12/03/24 09:44 Urine Ketones Negative (NEGATIVE) 12/03/24 09:44 Urine Blood Negative (NEGATIVE) 12/03/24 09:44 Urine Nitrite Negative (NEGATIVE) 12/03/24 09:44 Urine Bilirubin Negative (NEGATIVE) 12/03/24 09:44 Urine Urobilinogen Normal (NORMAL) 12/03/24 09:44 Ur Leukocyte Esterase Negative (NEGATIVE) 12/03/24 09:44 Urine RBC None seen /HPF (0-3) 12/03/24 09:44 Urine WBC 0-2 /HPF (0-5) 12/03/24 09:44 Ur Squamous Epith Cells Rare /HPF (NEGATIVE) 12/03/24 09:44 Urine Bacteria Negative /HPF (NEGATIVE) 12/03/24 09:44 Ur Culture Indicated? No/not indicated 12/03/24 09:44 Hospital Course: Patient admitted after being found to be in acute hypoxemic respiratory failure secondary to bilateral pleural effusions and return of A-fib. Recently discharged after admission for COVID-pneumonia and new onset A-fib with RVR. Reports that she went home was initially feeling better and then progressively worsened. Had a prolonged stay due to needing to get prior authorization for a CPAP for her moderate sleep apnea. Once we had a scheduled time to meet with respiratory therapy to start, she was discharged that day. Amiodarone was added by cardiology and she converted to sinus rhythm. For some reason, amiodarone was held along with blood pressure medicines during hypertension, A-fib returned and has not converted. She has not been in RVR for days. Pleural effusions responded to BiPAP and diuresis. She is discharged with a continued, but improved, left pleural effusion. She will need home health services and follow- up with cardiology. Not a good candidate for cardioversion at this time. She was encouraged to ambulate about the home while wearing her O2 continuously and to use her CPAP whenever she was sitting down and especially when sleeping. PE: Elderly, obese female in no acute distress. Wearing her nasal cannula. Hearing intact conversation. Heart irregularly, regular. Lungs are clear except left lung base with rales. Mood and affect are appropriate. Able to move all extremities well.
== END 2024-12-10 09:15 | disposition home health service (06) | DRG 308 ==
LOC: ER 15:45 → MED/SURG 19:31 → ICU 12-03 09:05 → MED/SURG 12-09 14:30
PROVIDERS: ADMIT Family Medicine; ATTEND Family Medicine
DX: K21.9 Gastro-esophageal reflux disease without esophagitis; I27.20 Pulmonary hypertension, unspecified; J96.02 Acute respiratory failure with hypercapnia; I48.91 Unspecified atrial fibrillation; I13.0 Hypertensive heart and chronic kidney disease with heart failure and stage 1 through stage 4 chronic kidney disease, or unspecified chronic kidney disease; G47.33 Obstructive sleep apnea (adult) (pediatric); E78.5 Hyperlipidemia, unspecified; J96.01 Acute respiratory failure with hypoxia; R73.03 Prediabetes; Z79.01 Long term (current) use of anticoagulants; N18.32 Chronic kidney disease, stage 3b; Z68.42 Body mass index [BMI] 45.0-49.9, adult; R79.1 Abnormal coagulation profile; R26.89 Other abnormalities of gait and mobility; R07.89 Other chest pain; R79.89 Other specified abnormal findings of blood chemistry; G25.81 Restless legs syndrome; J44.9 Chronic obstructive pulmonary disease, unspecified; I50.31 Acute diastolic (congestive) heart failure; R94.31 Abnormal electrocardiogram [ECG] [EKG]; E83.42 Hypomagnesemia; R94.4 Abnormal results of kidney function studies; I31.39 Other pericardial effusion (noninflammatory); E78.2 Mixed hyperlipidemia; E80.6 Other disorders of bilirubin metabolism; J90 Pleural effusion, not elsewhere classified; Z86.16 Personal history of COVID-19; E66.01 Morbid (severe) obesity due to excess calories